=== PATIENT | female | born 1955 | race Caucasian/White ===

== ENCOUNTER 2022-12-03 10:30 | Outpatient (RCR) | payer MEDICARE, SELFPAY | END 2023-02-24 09:06 | disposition home or self-care (01) | PROVIDERS: PCP Family Medicine; Visit Provider Family Medicine | DX: M25.561 Pain in right knee (principal); M25.562 Pain in left knee; M62.81 Muscle weakness (generalized); M21.069 Valgus deformity, not elsewhere classified, unspecified knee; Z51.89 Encounter for other specified aftercare | CPT/HCPCS: 97110; 97140; 97162 ==

== ENCOUNTER 2023-09-09 11:45 | Outpatient (RCR) | payer MEDICARE, SELFPAY | END 2023-09-22 14:25 | disposition home or self-care (01) | PROVIDERS: PCP Family Medicine; Visit Provider Family Medicine | DX: M25.561 Pain in right knee (principal); M25.562 Pain in left knee; Z51.89 Encounter for other specified aftercare | CPT/HCPCS: 97110; 97140; 97162 ==

== ENCOUNTER 2024-09-10 06:15 | Inpatient (IN) | payer MEDICARE, SELFPAY ==
[2024-09-10] VITALS (17 sets, daily range): BP systolic 123–146; BP diastolic 71–89; PULSE 64–85; RESP 14–18; TEMP 36.2–37.2; O2SAT 93–100; BMI 21.8; BMI 22.6
--- OUTSIDE RECORDS SUMMARY | 2024-09-10 06:18 | XMS_ITS | Clinical Summary ---
Author Organization [facility] Address [address] [place] [address] Care Team Providers Care Wedding Cake Designer Name Role Phone Steve Avery RN Unavailable Unavailable Carina Mckeon MD Primary Care Provide r Rowan Garcia MD Unavailable [phone] Allergies Active Allergy Reactions Criticality Noted Date Comments Leflunomide Alopecia,Dizziness 02/08/2023 Sulfa (Sulfonamide Antibiotics) Nausea Only 08/2011 Trazodone Dizziness 01/27/2021 Medications folic acid 1 mg tabletIndicati ons:Rheumatoid arthritis with positive rheumatoid factor, involving unspecified site (HC) Take 1 tablet by mouth once daily. 90 tablet 0 12/10/19 16 Active multivitamin-f olic acid 0.4 mg tablet Take 1 tablet by mouth once daily. Active cholecalcifero l (VITAMIN D) 1,000 unit capsule Take 1,000 Units by mouth once daily. Active methotrexate 25 mg/mL injectionIndic ations:Rheumat oid arthritis with positive rheumatoid factor, involving unspecified site (HC) Inject 0.6 mL (15 mg) subcutaneous once weekly. 12 mL 2 12/06/19 24 Active Lactobacillus acidophilus 10 billion cell cap Take by mouth. 08/23/19 24 Active estradioL (ESTRACE) 0.01% (0.1 mg/g) vaginal creamIndicatio ns:Atrophic vaginitis Insert 1 g into the vagina once weekly. 42.5 g 5 02/09/20 24 Active predniSONE 5 mg tabletIndicati ons:Rheumatoid arthritis with positive rheumatoid factor, involving unspecified site (HC) One daily or as directed 10 Tablet 07/20/19 25 Active ALPRAZolam 0.5 mg tabletIndicati ons:Insomnia, idiopathic Take 1-2 Tablets (0.5-1 mg) by mouth at bedtime if needed for sleep. 120 Tablet 08/22/19 25 Active ALPRAZolam (XANAX) 0.5 mg tabletIndicati ons:Insomnia, idiopathic Take 1-2 Tablets (0.5-1 mg) by mouth at bedtime if needed for sleep 120 Tablet 2 03/02/20 24 025 Discontinued Active Problems Problem Noted Date Diagnosed Date SCCA (squamous cell carcinoma) of skin Skin cancer 12/16/2023 Overview (02/14/2024): 12/13/23 right clavicle, Invasive SCC, excised by Jennifer Pascal MD on 01/18/2024 Primary osteoarthritis of right knee 09/02/2023 Primary osteoarthritis of left knee 08/05/2023 Immunosuppression 02/08/2023 History of sacrocolpopexy 06/20/2018 Female bladder prolapse 06/14/2017 Rectocele 06/14/2017 Rheumatoid arthritis with positive rheumatoid fa ctor 09/09/2015 Methotrexate, 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 Stage 3B. Grade 2. [address] positive. Pulmonary nodules noted on CT chest. Need follow up. MOHPA follows. Free intraperitoneal air Resolved Problems Problem Noted Date Diagnosed Date Resolved Date Cancer of skin, squamous cell 11/25/2016 12/16/2023 Rheumatoid arthritis(714.0) 02/10/2012 09/09/2015 Overview (02/10/2012): She sees Holly Dooley research analyst Encounters Date Type Department Care Team Description 09/03/2024 10:10 AM CDT Orders [place] [facility] [address] [place], [place] [address] Lab 09/03/2024 Travel 08/29/2024 Travel 08/20/2024 Refill [facility] [address] [place] [address] Carina Mckeon MD Refill Request (Alprazolam) 08/14/2024 9:45 AM CDT Office Visit [facility] [address] [facility] [address] [place] [address] Indiana Ellis MD Derm Problem 08/14/2024 Travel 08/09/2024 Travel 07/31/2024 11:05 AM CDT Ancillary Procedure [facility] [address] [place] [address] 07/31/2024 11:00 AM CDT Office Visit [facility] [address] [place] [address] Des Harmon MD Results (Bilateral Knee) 07/31/2024 Travel 07/26/2024 Travel 07/19/2024 Telephone [facility] [address] [place] [address] Des Harmon MD Appointment Request from Last 3 Months Immunizations Immunization Administration Dates Next Due COVID-19 VACCINE SPIKEVAX (M ODERNA 50MCG/0.5ML) 12YO+ PFS 02/09/2024 COVID-19 vaccine (Pfizer-Bio NTech 30mcg/0.3mL) 12YO+ BIVALENT PF, MDV 01/26/2022 COVID-19 vaccine (Pfizer-Bio NTech 30mcg/0.3mL) 12YO+ RACHELLE-SUCROSE PF, MDV 08/05/2021 COVID-19 vaccine (Pfizer-Bio NTech 30mcg/0.3mL) PF, MDV 01/22/2021,07/01/2020,06/10/2020 Hepatitis A, Unspecified 08/14/1997 Influenza RIV4 (Age 18+ Years) PRESERV FREE 10/2019,04/02/2019 Influenza Virus, Unspecified 01/21/2009,01/23/20 04 Influenza, IIV3 (Age >=3 years) 04/27/2012,02/23 Influenza, IIV4 (Age 6-35 Mos) 04/06/2013 Influenza, Inactivated AIIV4 (Age 65+ Years) Preserv Free 02/08/2023,01/13/2022,02/12/2021 Influenza, Inactivated IIV3 (Age 65+ Years) Preserv Free 02/09/2024 Pneumococcal Poly,23-Valent (Pneumovax) 12/28/19 20 Pneumococcal conj 13-Valent (Prevnar 13) 021 Td (Age >=7 Years) 01/23/2004,08/14/1997 Tdap 08/09/2014 Family History Medical History Relation Name Comments Alcohol/Drug Father Hypertension Father [place] and in 70's Cancer Maternal Grandmother unknown Hypertension Maternal Grandmother Cancer Mother gallbladder can cer Cancer-colon Paternal Grandfather Cancer-breast Paternal Grandmother Cancer-breast Sister 3 mu Anesthesia Problem No Family History Blood Disease No Family History Cancer-ovarian No Family History Relation Name Status Comments Father Maternal Grandmother Mother Paternal Grandfather Paternal Grandmother Sister 1 Alive Sister 2 Alive Sister 3 mu Alive Social History Tobacco Use Types Packs/Day Years Used Date Smoking Tobacco: Never Smokeless Tobacco: Never Tobacco Cessation:Counseling Given: Yes Alcohol Use Standard Drinks/Week Comments Not Currently 0 (1 standard drink = 0.6 oz pur e alcohol) PHQ-2 Answer Date Recorded PHQ-2 TOTAL SCORE 0 02/09/2024 Social Connections Answer Date Recorded Frequency of Communication with Friends and Fami ly 0 02/08/2023 Financial Resource Strain Answer Date R ecorded Difficulty of Paying Living Expenses 3 02/08/2023 Difficulty of Paying Living Expenses Not on file 02/08/2023 Food Insecurity Answer Date Recorded Worried About Running Out of Food in the Last Ye ar 1 02/08/2023 Transportation Needs Answer Date Record ed Lack of Transportation (Medical) 1 02/08/2023 Housing Stability Answer Date Recorded Unable to Pay for Housing in the Last Year 1 02/08/2023 Comments No Sex and Gender Information Value Date Recorded Sex Assigned at Female 10/05/2020 7:41 PM CDT Legal Sex Female 7:13 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 Gender Identity Female 10/05/2020 7:41 PM CDT Sexual Orientation Straight 10/05/2020 7: 41 PM CDT Obstetrics History Para Term AB IAB SAB Ectopic Multiple Livin g Live Births 2 2 2 2 Date Outcome GA Total Labor Labor/2nd/3rd Weight Sex Type Anes PTL Azul A1 A5 Name Clin Term Term Last Filed Vital Signs Vital Sign Reading Time Taken Comments Blood Pressure 110/70 06/05/2024 10:03 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 Pulse 77 06/05/2024 10:03 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 Temperature 36.8 C (98.3 F) 10/11/2023 1:59 PM CDT Respiratory Rate 20 08/20/2023 3:14 PM CDT Oxygen Saturation 100% 06/05/2024 10:03 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 Inhaled Oxygen Concentration - - Weight 60.8 kg (134 lb) 06/05/2024 10:03 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 Height 165.7 cm (5' 5.25) 02/09/2024 8:19 AM CD T Body Mass Index 22.13 02/09/2024 8:19 AM CDT Plan of Treatment Upcoming Encounters Date Type Department Care Team (Late st Contact Info) Description 12/04/2024 10:00 AM CDT [place] [facility] [address] [facility] [address] [place] [address] David Hsu MD [address] [facility] [address] [place] [address] 08/14/2025 10:00 AM CDT Office Visit [facility] [address] [facility] [address] [place] [address] [place] [address] [place] [address] Health Maintenance Due Date Last Done Comments Zoster (shingles) series for age 50+ (1 of 2) 1972 RSV vaccine for adults or (1 - Risk 60-74 years 1-dose series) 2013 COVID-19 vaccine series (9 - Pfizer risk season) 2024 02/09/2024, 11/01/2023, 03/19/2023, Additional history exists Tetanus booster 08/09/2024 08/09/2014, 01/01, 08/14/1997 Mammogram for age 45-75 10/24/2024 10/25/19 24, 10/19/2022, 10/13/2021, Additional history exists BMI (ht and wt on same day) for age 18+ 02/08/2025 02/09/2024, 08/20/2023, 02/08/2023, Additional history exists Depression screening for age 12+ 02/08/2025 02/09/2024, 02/08/2023, 01/26/2022, Additional history exists Medicare Wellness for age 65+ 02/09/2025, 02/08/2023, 01/26/2022, Additional history exists Lipids for age 45-75 02/08/2029 02/09/2024, 02/08/2023, 01/26/2022, Additional history exists Colonoscopy through age 75 07/26/203207/26, 02/10/2021, 10/21/2016, Additional history exists Tdap Completed 08/09/2014 DEXA/DXA scan for age 65+ Completed 11/14/2018 Hepatitis C screening for ag e 18-79 Completed 12/28/2019 Pneumococcal series for age 50+ Completed , 12/28/2019 Influenza Vaccine Completed 02/09/2024, , 01/13/2022, Additional history exists Medical Devices Implanted Type Area Disaster Recovery Consultant Device Identifier Shelf Expiration Date Model / Serial / Lot Set [employer] Intubationjedmed - [id number] Implanted:Qty: 1 on 08/20/2011 by Tracey Wright MD at [facility] [employer] [id number] / / [id number] Procedures Procedure Name Priority Date/Time Associated Diagnosis Comments WI BLOOD COUNT COMPLETE AUTO&AUTO DIFRNTL WBC Routine 09/03/2024 10:24 AM CDT High risk medication use ALT (SGPT) Routine 09/03/2024 10:22 AM CDT High risk medication use AST (SGOT) Routine 09/03/2024 10:22 AM CDT High risk medication use XR KNEE WB 1 VIEW AP BILATERAL AND 3 VIEWS BILATERAL Routine 07/31/2024 10:58 AM CDT Primary osteoarthritis of right knee Primary osteoarthritis of left knee LIPID PANEL W REFLEX MEASURED LDL Routine 02/09/2024 9:50 AM CDT Lipid screening XR MAMMO SALLY BILAT SCREEN Routine 10/25/2023 10:50 AM CDT Visit for screening mammogram SCAN-COLONOSCOPY 07/26/2022 2:00 PM CDT ANTI HCV Routine 12/28/2019 11:12 AM CDT Encounter for hepatitis C screening test for low risk patient XR DXA BONE DENSITY 2 SITES AXIAL Routine 11/14/2018 11:30 AM CDT Menopause from Last 3 Months or Most Recently Relevant to Health Maintenance Results * (ABNORMAL) CBC AND DIFFERENTIAL (09/03/2024 10:24 AM CDT) WHITE BLOOD CELL COUNT 5.3 3.8 - 10.8 Thousand/ uL [facility] RED BLOOD CELL COUNT 4.26 3.80 - 5.10 Million/u L [facility] HEMOGLOBIN 14.1 11.7 - 15.5 g/dL [facility] HEMATOCRIT 43.6 35.0 - 45.0 % [facility] MCV 102.3(H) 80.0 - 100.0 fL [facility] MCH 33.1(H) 27.0 - 33.0 pg [facility] MCHC 32.3 32.0 - 36.0 g/dL [facility] Comment: For adults, a slight decrease in the calculated MCHC value (in the range of 30 to 32 g/dL) is most likely not clinically significant; however, it should be interpreted with caution in correlation with other red cell parameters and the patient's clinical condition. RDW 13.5 11.0 - 15.0 % [facility] PLATELET COUNT 234 140 - 400 Thousand/ uL [facility] MPV 10.8 7.5 - 12.5 fL [facility] ABSOLUTE NEUTROPHILS 3,593 1,500 - 7,800 cells/uL [facility] ABSOLUTE LYMPHOCYTES 1,023 850 - 3,900 cells/uL [facility] ABSOLUTE MONOCYTES 572 200 - 950 cells/uL [facility] ABSOLUTE EOSINOPHILS 69 15 - 500 cells/uL [facility] ABSOLUTE BASOPHILS 42 0 - 200 cells/uL [facility] NEUTROPHILS 67.8 % [facility] LYMPHOCYTES 19.3 % [facility] MONOCYTES 10.8 % [facility] EOSINOPHILS 1.3 % [facility] BASOPHILS 0.8 % [facility] Blood BLOOD SPECIMEN / Unknown 09/03/2024 10:24 AM CDT 09/03/2024 10:24 AM CDT Narrative [facility] - 09/03/2024 11:09 AM CDT SPLIT 09/03/2024 FROM [id number] us David Hsu MD HEMATOLOGY Final Resul t [facility] [address] [place] [address] [facility] [address], [address] [place] [phone] * ALT (SGPT) (09/03/2024 10:22 AM CDT) ALT 17 6 - 29 U/L [facility] Blood BLOOD SPECIMEN / Unknown 09/03/2024 10:22 AM CDT 09/03/2024 10:23 AM CDT Narrative [facility] - 09/04/2024 4:40 AM CDT MULTIPLE TESTING PRIORITIES; ROUTINE TESTING TO FOLLOW. David Hsu MD CHEMISTRY Final Resul t Performing Organization Address [facility]/ZIP Co de Phone Number [facility] [address] [place] [phone], [facility] [address] [place] [address] * AST (SGOT) (09/03/2024 10:22 AM CDT) AST 26 10 - 35 U/L [facility] Blood BLOOD SPECIMEN / Unknown 09/03/2024 10:22 AM CDT 09/03/2024 10:23 AM CDT Narrative [facility] - 09/04/2024 4:40 AM CDT MULTIPLE TESTING PRIORITIES; ROUTINE TESTING TO FOLLOW. David Hsu MD CHEMISTRY Final Resul t Performing Organization Address [facility]/ZIP Co de Phone Number [facility] [address] [place] [address], [facility] [address] [place] [address] * XR KNEE WB 1 VIEW AP BILATERAL AND 3 VIEWS BILATERAL (07/31/2024 10:58 AM CDT) Anatomical Region Laterality Modality KNEES Computed Radiogr aphy 07/31/2024 11:2 2 AM CDT Narrative 07/31/2024 11:22 AM CDT For Patients: As a result of the Cures Act, medical imaging exams and procedure reports are released immediately into your electronic medical record. You may view this report before your referring provider. If you have questions, please contact your health care provider. INDICATION: Primary osteoarthritis of the right and left knee. Technique : Four views each of the right and left knee. Comparison : 08/05/2023 FINDINGS: No acute fracture or dislocation. Severe lateral compartment narrowing both knees with mild valgus angulation. Tricompartmental osteoarthritis. Possible sub articular lytic density in the lateral femoral condyle of the left knee. No obvious joint effusion. Impression : Chronic bilateral tricompartment osteoarthritis with progressive lateral compartment narrowing. Dictated by Saritha Acevedo MD @ 07/31/2024 11:22:06 AM (Electronically Signed) Procedure Note Luis Felipe Acevedo MD - 07/31/2024 For Patients: As a result of the Cures Act, medical imagingexams and procedure reports are released immediately into your electronicmedical record. You may view this report before your referring provider.If you have questions, please contact your health care provider. INDICATION: Primary osteoarthritis of the right and left knee. Technique : Four views each of the right and left knee. Comparison : 08/05/2023 FINDINGS: No acute fracture or dislocation. Severe lateral compartment narrowingboth knees with mild valgus angulation. Tricompartmental osteoarthritis.Possible sub articular lytic density in the lateral femoral condyle of theleft knee. No obvious joint effusion. Impression : Chronic bilateral tricompartment osteoarthritis with progressive lateralcompartment narrowing. Dictated by Saritha Acevedo MD @ 07/31/2024 11:22:06 AM (Electronically Signed) us Des Harmon MD GENERAL IMAGING Final Resul t * (ABNORMAL) LIPID PANEL W REFLEX MEASURED LDL (02/09/2024 9:50 AM CDT) CHOLESTEROL, TOTAL 240(H) <200 mg/dL [facility] HDL CHOLESTEROL 66 > OR = 50 mg/dL [facility] TRIGLYCERIDES 123 <150 mg/dL [facility] LDL-CHOLESTEROL 149(H) mg/dL (calc) [facility] Comment: Reference range: <100 Desirable range <100 mg/dL for primary prevention; <70 mg/dL for patients with CHD or diabetic patients with > or = 2 CHD risk factors. LDL-C is now calculated using the Anitra calculation, which is a validated novel method providing better accuracy than the Friedewald equation in the estimation of LDL-C. Akshat CASTELLANOS et al. ARUNA. 2013;310(19): 2069-4326 (http://education.Ambiq [employer]/faq/XCX364) CHOL/HDLC RATIO 3.6 <5.0 (calc) [facility] NON HDL CHOLESTEROL 174(H) <130 mg/dL (calc) [facility] Comment: For patients with diabetes plus 1 major ASCVD risk factor, treating to a non-HDL-C goal of <100 mg/dL (LDL-C of <70 mg/dL) is considered a therapeutic option. Blood BLOOD SPECIMEN / Unknown 02/09/2024 9:50 AM CDT 02/09/2024 9:51 AM CDT us Carina Mckeon MD CHEMISTRY Final Result [facility] [address] [place] [address], [facility] [address] [place] [address] * XR MAMMO SALLY BILAT SCREEN (10/25/2023 10:50 AM CDT) Anatomical Region Laterality Modality BREASTS, Breast Left, Breast Right Bilateral Mammography Impressions 10/25/2023 12:52 PM CDT There is no radiographic evidence for malignancy. Recommend annual mammograms. MAMMOGRAM ASSESSMENT: ACR 1 Negative PATIENTS: You will also receive a letter with your examination results in an easy to read format. If you have questions about your results, please contact your referring provider. Narrative 10/25/2023 12:52 PM CDT For Patients: As a result of the Century Cures Act, medical imaging exams and procedure reports are released immediately into your electronic medical record. You may view this report before your referring provider. If you have questions, please contact your health care provider. XR MAMMO SALLY BILAT SCREEN [[id number]] CLINICAL HISTORY: This is an asymptomatic 68 y.o. patient. INDICATION FOR EXAM: Mammogram Screening. TECHNIQUE: CC & MLO views were obtained. This study was evaluated with the assistance of Computer-Aided Detection. Breast Tomosynthesis was used in interpretation. COMPARISON FILM: Yes 10/19/22 [facility] 10/13/21 [facility] FINDINGS: There are scattered areas of fibroglandular density. There are no dominant masses, suspicious micro calcifications or areas of architectural distortion. us Carina Mckeon MD MAMMO Final Result * SCAN-COLONOSCOPY (07/26/2022 2:00 PM CDT) Narrative Procedure Note Tye العلي MD - 07/26/2022 1:00 PM CDT [facility] [address], [address], [place] [address] Patient Name: Ember Menjivar Gender: Female Exam Date: 07/26/2022 Visit Number: [id number] Age: 66 Years 11 Months Date of : 1955 Attending MD: Tye العلي MD Medical Record#: [id number] ----- Procedure: Colonoscopy Indications: Abdominal pain Personal history of colon cancer Referring MD: Carina Mckeon MD Primary MD: Carina Mckeon MD Medications: Admitting Medications: 0.9% Normal Saline at TKO Intra Procedure Medications: Patient received monitored anesthesia care. Complications: No immediate complications Procedure: An examination of the heart and lungs was performed and found to be withinacceptable limits. The patient was therefore deemed a reasonablecandidate for endoscopy and monitored anesthesia care. The risks and benefits of the procedure were explained to the patient.After obtaining informed consent, the patient received monitoredanesthesia care and I passed the scope without difficulty via the rectum to the ileum. The appendiceal orificeand ic valve were identified. The quality of the prep was good (Jose Eduardo/GatSplit). This was a complete examination throughout the entire colon. Findings: Normal mucosa. Location - ileum - entire colon. Diverticulosis. Location: - sigmoid. Description: mild. Size:small. Quantity: few. Post surgical anatomy: -ileo-colonic anastomosis Location(s): -ascending colon Healthy appearing anastomosis. Tortuous colon. Remainder of the exam is normal. Impression: 1. Ileo-colonic anastomosis noted in ascending colon with healthyappearance. 2. Diverticulosis of sigmoid colon, mild. 3. Tortuous colon, but otherwise normal appearing mucosa in the examinedileum and the entire colon. Plan: 1. Repeat surveillance colonoscopy in 5 years. 2. No endoscopic findings today to explain lower abdominal pain. Suspectintermittent pain likely due to tortuous colon and suspected adhesions.Would favor empirical trial of once daily [id number] fibersupplements and/or laxative with MiraLax to ensure smooth passage ofstool. We will attempt to contact you at appropriate intervals via U.S. mail. Wemay not be able to find you or contact you at that time, therefore youshould know that the responsibility for following our recommendation restswith you. If you don't hear from us at the time your procedure is due,please contact our office to schedule an appointment. If your contactinformation should change, please contact our office so that we can updateyour records. Electronically signed by: Tye العلي MD 07/26/2022 Medications: Medication Dose Sig Description PRN Status PRN Reason Comments leflunomide 20 mg tablet 20 mg take 1 tablet by oral route every day N Rasuvo (PF) 30 mg/0.6 mL subcutaneous auto-injector 30 mg/0.6 mL inject0.6 milliliter by subcutaneous route every week N Allergies: Medication Name Ingredient Reaction Comment SULFA (SULFONAMIDE ANTIBIOTICS) nausea NO KNOWN ALLERGIES Vital Signs: Date Time Systolic Diastolic Height Weight BMI 07/26/2022 130 AM 000 000 65 in 129.39 21.50 07/26/2022 130 PM 115 70 65 in 129.39 21.50 Smoking Status: Use Status Type Smoking Status Usage Per Day Years Used Total Pack Years no/never Never smoker no/never Never smoker Race: White Ethnicity: Not or Preferred Language: Estonian cc: Carina Mckeon MD cc: Carina Mckeon MD cc: Severo Gillette MD cc: Carina Mckeon MD [facility] [phone] us Tye العلي MD OTHER Final Result * ANTI HCV (12/28/2019 11:12 AM CDT) Pathologist [facility] HEPATITIS C ANTIBODY Non-React jeff Non-React jeff 12/28/2019 5:37 PM CDT [facility] Comment:Antibodies to HCV no t detected; does not exclude the possibility of exposure to HCV. Blood BLOOD SPECIMEN / Unknown Venipuncture / Unknown 12/28/2019 11:12 AM CDT 12/28/2019 11:12 AM CDT us Carina Mckeon MD SEND OUTS Final Result [facility] [address] [place] [address], [place] * (ABNORMAL) XR DXA BONE DENSITY 2 SITES AXIAL [28145.1] (11/14/2018 11:30 AM CDT) Anatomical Region Laterality Modality Spine, HIPS, HIPL, HIPR Other Narrative 11/27/2018 8:41 AM CDT Please see scanned document for results of this study. us Carina HENDRIX Final Result from Last 3 Months or Most Recently Relevant to Health Maintenance Insurance [employer] MED[employer]ARE ADVANTAGE Advance Directives * Full Code (Latest Code Status on File) Date Activated Date Inactivated Comments 08/09/2016 5:24 PM 2016 3:00 PM * Full Code Date Activated Date Inactivated Comments 04/06/2012 1:50 PM 04/10/2012 6:22 PM * Full Code Date Activated Date Inactivated Comments 08/20/2011 9:54 AM 08/20/2011 4:33 PM Care Teams Wedding Cake Designer Relationship Specialty Start Date End Date Carina Mckeon MD [address] [place] [address] PCP - General Family Practice 06/14/14 Steve Avery, RN Rn Procedure Registered Nurse 03/31/12 Rowan Garcia MD [address] [facility] [address] [place] [address] Rheumatology Rheumatology 12/10/15 Lucero Downey, RN 10/20/12
--- OUTSIDE RECORDS SUMMARY | 2024-09-10 06:18 | XMS_ITS | Clinical Summary ---
Author Organization [place] Address [facility] [place] [address] Care Team Providers Care Mannequin Sander And Finisher Name Role Phone Carina Mckeon Primary Care Provider [phone] Allergies Active Allergy Reactions Criticality Noted Date Comments Sulfa Antibiotics Nausea Low 04/20/2012 Medications hydroxychloroqu ine (PLAQUENIL) 200 MG tablet Take 200 mg by mouth 2 times daily Active FOLIC ACID PO Take 400 mcg by mouth daily Active conjugated estrogens (PREMARIN) cream Place 2 g vaginally twice a week Active Probiotic Product (PROBIOTIC PO) Take 2 capsules by mouth daily Active ALPHA LIPOIC ACID PO Take 1 capsule by mouth daily Active ALPRAZolam (XANAX PO)Indications: 1-2 tablets Take 0.5-1 mg by mouth nightly as needed for anxiety Active multivitamin, therapeutic with minerals (THERA-VIT-M) TABS tablet Take 1 tablet by mouth daily Active MILK THISTLE PO Take 1 tablet by mouth daily Active methotrexate (RHEUMATREX) 25 MG/ML injection Inject 15 mg Subcutaneous once a week On Sundays (Takes 0.6 x 25mg/mL = 15mg dose) Active senna-docusate (SENOKOT-S;EVELINE COLACE) 8.6-50 MG per tabletIndicatio ns:Uterine prolapse Take 1 tablet by mouth daily as needed for constipation 20 tablet 8 Active HYDROcodone-js taminophen (NORCO) 5-325 MG per tabletIndicatio ns:Uterine prolapse Take 1 tablet by mouth every 4 hours as needed for pain 20 tablet 8 Active Active Problems Problem Noted Date Diagnosed Date Uterine prolapse 12/21/2017 Social History Tobacco Use Types Packs/Day Years Used Date Smoking Tobacco: Never Smokeless Tobacco: Never Alcohol Use Standard Drinks/Week Comments Yes 0 (1 standard drink = 0.6 oz pur e alcohol) 6/week Comments No Sex and Gender Information Value Date Recorded Sex Assigned at Not on file Legal Sex Female 3:21 AM REGRINDER Gender Identity Not on file Sexual Orientation Not on file Last Filed Vital Signs Vital Sign Reading Time Taken Comments Blood Pressure 96/56 12/21/2017 3:37 PM CDT Pulse 74 11/15/2012 10:21 AM CDT Temperature 35.6 C (96 F) 12/21/2017 3:37 PM CDT Respiratory Rate 14 12/21/2017 3:37 PM CDT Oxygen Saturation 96% 12/21/2017 3:37 PM CDT Inhaled Oxygen Concentration - - Weight 62.4 kg (137 lb 8 oz) 12/21/2017 6:45 AM CDT Height 166.4 cm (5' 5.5) 12/21/2017 6:45 AM CDT Body Mass Index 22.53 12/21/2017 6:45 AM CDT Plan of Treatment Not on file Medical Devices Implanted Type Area Keyboard Action Assembler Device Identifier Shelf Expiration Date Model / Serial / Lot Mesh Sling Y Shape Restorelle [id number] Implanted:Qty: 1 on 12/21/2017 by Philippe Miranda MD at [facility] Mesh N/A: Pelvis COLOPLAST 07/01/2020 [id number] / / [id number] Insurance [employer] Advance Directives For more information, please contact: [phone] * Full Code (Latest Code Status on File) Date Activated Date Inactivated Comments 12/21/2017 2:51 PM Care Teams Mannequin Sander And Finisher Relationship Specialty Start Date End Date Carina Mckeon PCP - General Family Practice 11/29/17
--- NOTE | 2024-09-10 06:22 | ED.GENADULT ---
HPI - General Adult General Time Seen by Provider: 06:22 Date Seen: 09/10/24 Chief complaint: Abdominal Pain Stated complaint: abdominal pain, vomit, Time Seen by Provider: 09/10/24 06:22 Source: patient, RN notes reviewed and old records reviewed Mode of arrival: ambulatory Limitations: no limitations History of Present Illness HPI narrative: 69-year-old female who comes in today with abdominal pain, started last night. Then started having nausea vomiting and diarrhea today. Says she feels gassy. Patient has a history of prior partial colectomy related to colon cancer, also reports a history of ?perforation? which was treated with antibiotics only. No fever chills, on methotrexate for rheumatoid arthritis. Related Data Allergies Allergy/AdvReac Type Severity Reaction Status Date / Time Sulfa (Sulfonamide Allergy Mild Diarrhea Verified 09/10/24 07:30 Antibiotics) PFSH PFSH Social History Smoking Status: Never smoker Second hand tobacco smoke exposure: No How often do you have a drink containing alcohol: never AUDIT-C Alcohol total score: 0 Non-prescribed substance use: denies use Exam Narrative: Exam Narrative: General: Well-developed and well-nourished, appears uncomfortable Head: Atraumatic and normocephalic Eyes: Pupils are equal reactive, extraocular motions intact, conjunctiva clear ENT: External nose and ears are normal, posterior pharynx without erythema or exudate Neck: No midline cervical tenderness, full spontaneous range of motion the neck, trachea midline, no adenopathy Heart: Regular rate and rhythm no murmurs or thrills Lungs: Clear to auscultation bilaterally without wheezes or crackles Abdomen: Soft, diffuse abdominal tenderness, mild distention with active bowel sounds Musculoskeletal: No tenderness, deformity, or edema Neurologic: Awake, alert, and oriented x3, no gross focal neurologic deficits, cranial nerves intact as tested Psych: Mood and affect are appropriate Skin: No rashes Const: Vital Signs, click to edit/add: Vital Signs - 24 hr 09/10/24 06:32 09/10/24 06:42 09/10/24 06:43 Temperature 98.1 F Pulse Rate 83 Pulse Rate [Right Pulse Oximeter] 85 Respiratory Rate 18 18 Blood Pressure 129/81 Blood Pressure [Le ft Upper Arm] 138/89 Pulse Oximetry 99 100 99 Oxygen Delivery Me thod Room Air Oxygen Flow Rate 09/10/24 07:47 Temperature Pulse Rate Pulse Rate [Right Pulse Oximeter] Respiratory Rate Blood Pressure Blood Pressure [Le ft Upper Arm] Pulse Oximetry 99 Oxygen Delivery Me thod Nasal Cannula Oxygen Flow Rate 2 Course Course ED Course: Reviewed most recent orthopedics visit from July 31 which was follow-up of osteoarthritis, patient also noted to have history of rheumatoid arthritis on methotrexate. Reviewed prior admission from July 2016 when patient was admitted with free air in the abdomen, no clear perforation, managed with antibiotics and bowel rest. Patient presents with abdominal pain starting yesterday, vomiting and diarrhea this morning. No blood in the stools. Says she has a history of a perforation and this feels similar. On exam vital is stable, mild diffuse abdominal tenderness, no peritoneal signs. Labs and CT scan are ordered. Reevaluation(s) Time of Reevaluation #1: 07:20 Reevaluation #1: Labs independently interpreted by me as normal CBC, normal basic panel, normal hepatic panel, normal lipase, normal lactate. CT of the abdomen pelvis and pelvis interpreted by me with dilated loops of small bowel,, no free air. Stomach is mostly decompressed. Time of Reevaluation #2: 07:45 Reevaluation #2: Updated patient and spouse with findings and plan. Patient is complaining of severe pain although appears more comfortable, also oxygen saturation dropped and so patient is on nasal cannula. I am a little hesitant to give her too much more pain medication due to this hypoxia. NG tube will be placed. Care discussed with Dr. Cerrato for admission. IMPRESSION: Abnormally dilated small bowel. The findings probably represent an early or incomplete distal small bowel obstruction. It is also possible that this represents an enteritis or a small-bowel ileus. Other nonacute appearing findings as above. Vital Signs Vital signs: Initial Vital Signs Temperature 98.1 F 09/10/24 06:32 Temperature Source Temporal Artery Scan 09/10/24 06:32 Pulse Rate 85 09/10/24 06:32 Respiratory Rate 18 09/10/24 06:32 Blood Pressure 138/89 09/10/24 06:32 Blood Pressure Mean 105 09/10/24 06:32 Blood Pressure Position Sitting 09/10/24 06:32 Pulse Oximetry 99 09/10/24 06:32 Oxygen Delivery Method Room Air 09/10/24 06:32 Vital Signs Temperature 98.1 F 09/10/24 06:32 Pulse Rate 85 09/10/24 06:32 Respiratory Rate 18 09/10/24 06:32 Blood Pressure 138/89 09/10/24 06:32 Pulse Oximetry 99 09/10/24 06:32 Oxygen Delivery Method Room Air 09/10/24 06:32 Temperature 98.1 F 09/10/24 06:32 Pulse Rate 83 09/10/24 06:42 Respiratory Rate 18 09/10/24 06:42 Blood Pressure 129/81 09/10/24 06:42 Pulse Oximetry 99 09/10/24 07:47 Oxygen Delivery Method Nasal Cannula 09/10/24 07:47 Oxygen Flow Rate 2 09/10/24 07:47 Medications Administered Medications: Discontinued Medications Generic Name Dose Route Start Last Admin Trade Name Raphaelq PRN Reason Stop Dose Admin Hydromorphone HCl 0.5 mg 09/10/24 06:37 09/10/24 06:38 Hydromorphone 0.5 Mg/0.5 Ml Inj IVP 09/10/24 06:38 0.5 mg ONCE ONE Administration Ondansetron HCl 4 mg 09/10/24 06:37 09/10/24 06:39 Ondansetron 2 Mg/Ml Inj IVP 09/10/24 06:38 4 mg ONCE ONE Administration Medical Decision Making Lab Data Labs: Lab Results 09/10/24 Range/Units 06:40 WBC 9.55 (4.50-11.00) K/uL RBC 4.46 (4.00-5.20) m/uL Hgb 15.0 (12.0-16.0) gm/dL Hct 44.0 (33.0-51.0) % MCV 99 (80-100) fL MCH 34 (26-34) pg MCHC 34 (32-36) gm/dL RDW Coeff of Elena 13.3 (11.5-15.5) % Plt Count 253 (140-440) K/uL Neut % (Auto) 86.4 H (42.0-72.0) % Lymph % (Auto) 7.2 L (20-44) % Merrick % (Auto) 5.7 (0.0-11.0) % Eos % (Auto) 0.3 (0.0-7.0) % Baso % (Auto) 0.3 (0.0-3.0) % Neut # (Auto) 8.30 H (1.7-7.0) K/uL Lymph # (Auto) 0.70 L (0.90-2.90) K/uL Merrick # (Auto) 0.50 (0.00-0.90) K/UL Eos # (Auto) 0.03 (0.00-0.50) K/uL Baso # (Auto) 0.03 (0.00-0.30) K/uL Abs Immat Gran (auto) 0.01 (0.00-0.30) K/uL Imm/Tot Granulo (auto) 0.1 % Sodium 138 (135-149) mmol/L Potassium 3.4 L (3.6-5.1) mmol/L Chloride 102 (96-114) mmol/L Carbon Dioxide 27 (20-32) mmol/L Anion Gap 9 (7-15) mEq/L BUN 17 (7-30) mg/dL Creatinine 0.8 (0.5-1.5) mg/dL Estimated Creat Clear 46.43 Estimated GFR 79 ml/min Glucose 145 H (60-115) mg/dL Lactate 1.0 (0.5-1.9) mmol/L Calcium 9.4 (8.4-10.6) mg/dL Magnesium 2.2 (1.5-2.6) mg/dL Total Bilirubin 0.9 (0.1-1.5) mg/dL Direct Bilirubin 0.4 (0.0-0.5) mg/dL AST 45 H (12-35) U/L ALT 24 (4-35) U/L Alkaline Phosphatase 88 (40-150) U/L Total Protein 7.6 (6.0-8.3) g/dL Albumin 4.7 (3.3-5.0) g/dL Lipase 99 (23-300) U/L Discharge Plan Discharge Clinical Impression: Abdominal pain, vomiting, and diarrhea, SBO (small bowel obstruction) Patient Disposition: Admitted As Observation
--- NOTE | 2024-09-10 06:37 | CRLHL7_ITS ---
For Patients: As a result of the 21st Century Cures Act, medical imaging exams and procedure reports are released immediately into your electronic medical record. You may view this report before your referring provider. If you have questions, please contact your health care provider. INDICATION: Abdominal pain. History of partial colon resection, hysterectomy, cholecystectomy and appendectomy. COMPARISON: August 09, 2016 TECHNIQUE: CT examination of the abdomen and pelvis was performed following the uneventful intravenous administration of 64 cc of Isovue 370. Thin section axial images were obtained from the lung bases through the pubic symphysis. Oral contrast was not administered. Please note that all CT scans at this facility use dose modulation, iterative reconstruction, and/or weight-based dosing when appropriate to reduce radiation dose to as low as reasonably achievable. FINDINGS: LUNG BASES: Basilar atelectasis or scarring. Left lower lobe granuloma.The heart is enlarged the lung bases LIVER/BILIARY SYSTEM:No focal hepatic mass. There has been a cholecystectomy. What is likely a dilated cystic duct remains. This was present on the prior study and appears unchanged. Mildly prominent biliary ductal system unchanged likely capacitance phenomena from the cholecystectomy. ADRENALS: Normal KIDNEYS, URETERS and BLADDER:The kidneys appear normal. No visible mass, calculus or hydronephrosis. The ureters and bladder as visualized appear normal. SPLEEN:Normal appearance. PANCREAS: Appears normal. RETROPERITONEUM and MESENTERY: There is no mass, adenopathy or aortic aneurysm. GASTROINTESTINAL SYSTEM: Postoperative change related to partial colectomy. Abnormally dilated small bowel with air-fluid levels. The distal small bowel appears to be of normal caliber. This could represent an enteritis or small bowel ileus. However, I suspect this is an incomplete or early small bowel obstruction. PELVIS: No mass, adenopathy or free fluid. OSSEOUS STRUCTURES and ABDOMINAL WALL: There is an age-appropriate appearance of the osseous structures.No significant abdominal wall defect. OTHER: No free fluid or free air. IMPRESSION: Abnormally dilated small bowel. The findings probably represent an early or incomplete distal small bowel obstruction. It is also possible that this represents an enteritis or a small-bowel ileus. Other nonacute appearing findings as above. Please note that all CT scans at this facility use dose modulation, iterative reconstruction, and/or weight-based dosing when appropriate to reduce radiation dose to as low as reasonably achievable. Dictated by Edgar Longo MD @ 09/10/2024 7:36:57 AM (Electronically Signed)
[2024-09-10] MEDS: HYDROmorphone 0.5 mg/0.5 ml inj IVP ×2 (06:38→23:25)
[2024-09-10] MEDS: ONDANSETRON 2 MG/ML inj 4 MG IVP ×4 (06:39→21:13)
[2024-09-10 06:44] LABS: Basophils Absolute Auto 0.03 K/uL (0.00-0.30); Basophils Percent Auto 0.3 % (0.0-3.0); Eosinophils Absolute Auto 0.03 K/uL (0.00-0.50); Eosinophils Percent Auto 0.3 % (0.0-7.0); Immature Granulocytes Abs Auto 0.01 K/uL (0.00-0.30); Immature Granulocytes Pct Auto 0.1 %; Lymphocytes Percent Auto 7.2 % (20-44); Mean Corpuscular HGB Conc 34 gm/dL (32-36); Mean Corpuscular Hemoglobin 34 pg (26-34); Mean Corpuscular Volume 99 fL (80-100); Monocytes Percent Auto 5.7 % (0.0-11.0); Neutrophils Percent Auto 86.4 % (42.0-72.0); Platelet Count* 253 K/uL (140-440); RDW Coefficient of Variation % 13.3 % (11.5-15.5); Red Blood Count 4.46 m/uL (4.00-5.20); White Blood Count* 9.55 K/uL (4.50-11.00)
[2024-09-10 06:46] LABS: Slide Review Reflex No
[2024-09-10 07:00] LABS: Chloride* 102 mmol/L (96-114)
[2024-09-10 07:01] LABS: Albumin* 4.7 g/dL (3.3-5.0); Potassium* 3.4 mmol/L (3.6-5.1); Sodium* 138 mmol/L (135-149)
[2024-09-10 07:03] LABS: Blood Urea Nitrogen* 17 mg/dL (7-30); Creatinine* 0.8 mg/dL (0.5-1.5); Est. Creatinine Clearance* 46.43; Estimated Glomerular Filt Rate 79 ml/min
[2024-09-10 07:04] LABS: Alanine Aminotransferase* 24 U/L (4-35); Alkaline Phosphatase* 88 U/L (40-150); Anion Gap 9 mEq/L (7-15); Aspartate Amino Transferase* 45 U/L (12-35); Bilirubin Direct* 0.4 mg/dL (0.0-0.5); Bilirubin Total* 0.9 mg/dL (0.1-1.5); Calcium* 9.4 mg/dL (8.4-10.6); Carbon Dioxide* 27 mmol/L (20-32); Glucose* 145 mg/dL (60-115); Lipase* 99 U/L (23-300); Magnesium* 2.2 mg/dL (1.5-2.6); Total Protein* 7.6 g/dL (6.0-8.3)
--- OUTSIDE RECORDS SUMMARY | 2024-09-10 07:06 | XMS_ITS | Clinical Summary ---
Author Organization [facility] Address [address] [place] [id number] Care Team Providers Care Processing Rep Name Role Phone Steve Avery RN Unavailable Unavailable Carina Mckeon MD Primary Care Provide r Rowan Garcia MD Unavailable [phone] Allergies Active Allergy Reactions Criticality Noted Date [...] with positive rheumatoid fa ctor 09/09/2015 Methotrexate, exterminator, 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 Stage 3B. Grade 2. [address] positive. Pulmonary nodules noted on CT chest. Need follow up. MOHPA follows. Free intraperitoneal air Resolved Problems Problem Noted Date Diagnosed Date Resolved Date Cancer of skin, squamous cell 11/25/2016 12/16/2023 Rheumatoid arthritis(714.0) 02/10/2012 09/09/2015 Overview (02/10/2012): She sees Holly Dooley teacher vocational training Encounters Date Type Department Care Team Description 09/03/2024 10:10 AM CDT Orders Only [facility] [address] [place], [place] [address] Lab 09/03/2024 Travel 08/29/2024 Travel 08/20/2024 Refill [facility] [address] [place] [address] Cairna Mckeon MD Refill Request (Alprazolam) 08/14/2024 9:45 AM CDT Office Visit [facility] [address] [facility] [address] [place] [address] Indiana Ellis MD Derm Problem 08/14/2024 Travel 08/09/2024 Travel 07/31/2024 11:05 AM CDT Ancillary Procedure [facility] [address] [place] [phone] 07/31/2024 11:00 AM CDT Office Visit [facility] [address] [place] [phone] Des Harmon MD Results (Bilateral Knee) 07/31/2024 Travel 07/26/2024 Travel 07/19/2024 Telephone [facility] [address] [place] [phone] Des Harmon MD Appointment Request from Last [...] Relation Name Comments Alcohol/Drug Father Hypertension Father OR and in 70's Cancer Maternal Grandmother unknown [...] PM CDT Legal Sex Female 7:13 AM ROPEMAN Gender Identity Female 10/05/2020 7:41 PM CDT [...] Comments Blood Pressure 110/70 06/05/2024 10:03 AM ROPEMAN Pulse 77 06/05/2024 10:03 AM ROPEMAN Temperature 36.8 C (98.3 F) 10/11/2023 1:59 PM CDT Respiratory Rate 20 08/20/2023 3:14 PM CDT Oxygen Saturation 100% 06/05/2024 10:03 AM ROPEMAN Inhaled Oxygen Concentration - - Weight 60.8 kg (134 lb) 06/05/2024 10:03 AM ROPEMAN Height 165.7 cm (5' 5.25) 02/09/2024 8:19 AM CD T Body Mass Index 22.13 02/09/2024 8:19 AM CDT Plan of Treatment Upcoming Encounters Date Type Department Care Team (Late st Contact Info) Description 12/04/2024 10:00 AM CDT Office Visit [facility] [address] [facility] [address] [place] [address] David Hsu MD [address] [facility] [address] [place] [address] 08/14/2025 10:00 AM CDT Office Visit [facility] [address] [facility] [address] [place] [address] [place] [address] [place] [address] Health Maintenance Due Date Last Done Comments [...] history exists Medical Devices Implanted Type Area Sizing Machine Operator Device Identifier Shelf Expiration Date Model / Serial / Lot Set Wilton Intubationjedmed - [id number] Implanted:Qty: 1 on 08/20/2011 by Tracey Wright MD at [facility] [employer] [id number] / / [id number] Procedures Procedure Name Priority Date/Time Associated Diagnosis Comments DE BLOOD COUNT COMPLETE AUTO&AUTO DIFRNTL WBC Routine [...] COUNT 5.3 3.8 - 10.8 Thousand/ uL [facility] RED BLOOD CELL COUNT 4.26 3.80 - 5.10 Million/u L [facility] HEMOGLOBIN 14.1 11.7 - 15.5 g/dL [facility] HEMATOCRIT 43.6 35.0 - 45.0 % [facility] MCV 102.3(H) 80.0 - 100.0 fL [facility] MCH 33.1(H) 27.0 - 33.0 pg [facility] MCHC 32.3 32.0 - 36.0 g/dL [facility] Comment: For adults, a slight decrease in the calculated MCHC value (in the range of 30 to 32 g/dL) is most likely not clinically significant; however, it should be interpreted with caution in correlation with other red cell parameters and the patient's clinical condition. RDW 13.5 11.0 - 15.0 % [facility] PLATELET COUNT 234 140 - 400 Thousand/ uL [facility] MPV 10.8 7.5 - 12.5 fL [facility] ABSOLUTE NEUTROPHILS 3,593 1,500 - 7,800 cells/uL [facility] ABSOLUTE LYMPHOCYTES 1,023 850 - 3,900 cells/uL [facility] ABSOLUTE MONOCYTES 572 200 - 950 cells/uL [facility] ABSOLUTE EOSINOPHILS 69 15 - 500 cells/uL [facility] ABSOLUTE BASOPHILS 42 0 - 200 cells/uL [facility] NEUTROPHILS 67.8 % [facility] LYMPHOCYTES 19.3 % [facility] MONOCYTES 10.8 % [facility] EOSINOPHILS 1.3 % [facility] BASOPHILS 0.8 % [facility] Blood BLOOD SPECIMEN / Unknown 09/03/2024 10:24 AM CDT 09/03/2024 10:24 AM CDT Narrative [facility] - 09/03/2024 11:09 AM CDT SPLIT 09/03/2024 FROM [id number] us David Hsu MD HEMATOLOGY Final Resul t [facility] [address] [place] [address] [facility] [address], [place] [address] [place] [phone] * ALT (SGPT) (09/03/2024 10:22 AM CDT) ALT 17 6 - 29 U/L [facility] Blood BLOOD SPECIMEN / Unknown 09/03/2024 10:22 AM CDT 09/03/2024 10:23 AM CDT Narrative [facility] - 09/04/2024 4:40 AM CDT MULTIPLE TESTING PRIORITIES; ROUTINE TESTING TO FOLLOW. David Hsu MD CHEMISTRY Final Resul t Performing Organization Address [facility]/ZIP Co de Phone Number [facility] [address] [place] [phone], [facility] [address] [place] [address] * AST (SGOT) (09/03/2024 10:22 AM CDT) AST 26 10 - 35 U/L [facility] Blood BLOOD SPECIMEN / Unknown 09/03/2024 10:22 AM CDT 09/03/2024 10:23 AM CDT Narrative [facility] - 09/04/2024 4:40 AM CDT MULTIPLE TESTING PRIORITIES; ROUTINE TESTING TO FOLLOW. David Hsu MD CHEMISTRY Final Resul t Performing Organization Address [facility]/ZIP Co de Phone Number [facility] [address] [place] [address], [facility] [address] [place] [address] * XR KNEE WB 1 VIEW AP [...] LDL-C. Akshat CASTELLANOS et al. ARUNA. 2013;310(19): 3228-9119 (http://education.Diabetes America/faq/RPR187) CHOL/HDLC RATIO 3.6 <5.0 (calc) [facility] NON HDL CHOLESTEROL 174(H) <130 mg/dL (calc) [facility] Comment: For patients with diabetes plus 1 major ASCVD risk factor, treating to a non-HDL-C goal of <100 mg/dL (LDL-C of <70 mg/dL) is considered a therapeutic option. Blood BLOOD SPECIMEN / Unknown 02/09/2024 9:50 AM CDT 02/09/2024 9:51 AM CDT us Carina Mckeon MD CHEMISTRY Final Result [facility] [address] [place] [address], [facility] [address] [place] [address] * XR MAMMO SALLY BILAT SCREEN (10/25/2023 [...] care provider. XR MAMMO SALLY BILAT SCREEN [[id number]] CLINICAL HISTORY: This is an asymptomatic 68 [...] العلي MD - 07/26/2022 1:00 PM CDT [facility] [address], [address], [place] [address] Patient Name: Ember Menjivar Gender: Female Exam Date: 07/26/2022 Visit Number: [id number] Age: 66 Years 11 Months Date of : 1955 Attending MD: Tye اعللي MD Medical Record#: [id number] ----- Procedure: Colonoscopy Indications: Abdominal pain Personal [...] adhesions.Would favor empirical trial of once daily [id number] fibersupplements and/or laxative with MiraLax to ensure [...] Race: White Ethnicity: Not or Preferred Language: Japanese cc: Carina Mckeon MD cc: Carina Mckeon MD cc: Severo Gillette MD cc: Carina Mckeon MD [facility] [phone] us Tye العلي MD OTHER Final Result * ANTI HCV (12/28/2019 11:12 AM CDT) Pathologist [facility] HEPATITIS C ANTIBODY Non-React jeff Non-React jeff 12/28/2019 5:37 PM CDT [facility] Comment:Antibodies to HCV no t detected; does not exclude the possibility of exposure to HCV. Blood BLOOD SPECIMEN / Unknown Venipuncture / Unknown 12/28/2019 11:12 AM CDT 12/28/2019 11:12 AM CDT us Carina Mckeon MD SEND OUTS Final Result [facility] [address] [place] [address], [place] * (ABNORMAL) XR DXA BONE DENSITY 2 SITES AXIAL [50620.1] (11/14/2018 11:30 AM CDT) Anatomical Region Laterality [...] 9:54 AM 08/20/2011 4:33 PM Care Teams Processing Rep Relationship Specialty Start Date End Date Carina Mckeon MD [address] [place] [address] PCP - General Family Practice 06/14/14 Steve Avery, RN Psychologist Engineering Registered Nurse 03/31/12 Rowan Garcia MD [address] [facility] [address] [place] [address] Rheumatology Rheumatology 12/10/15 Lucero Downey, RN 10/20/12
--- OUTSIDE RECORDS SUMMARY | 2024-09-10 07:06 | XMS_ITS | Clinical Summary ---
Author Organization [place] Address [facility] 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 Gender Identity Not on file Sexual Orientation [...] on file Medical Devices Implanted Type Area Can Carrier Device Identifier Shelf Expiration Date Model / Serial / Lot Mesh Sling Y Shape Restorelle 24x4cm [id number] Implanted:Qty: 1 on 12/21/2017 by Philippe Miranda MD at [facility] Mesh N/A: Pelvis COLOPLAST 07/01/2020 [id number] / / [id number] Insurance [employer] Advance Directives For more information, please contact: [phone] * Full Code (Latest Code Status on File) Date Activated Date Inactivated Comments 12/21/2017 2:51 PM Care Teams Electroencephalographic Technologist Relationship Specialty Start Date End Date Carina Mckeon PCP - General Family Practice 11/29/17
--- NOTE | 2024-09-10 07:49 | CRLHL7_ITS ---
For Patients: As a result of the Cures Act, medical imaging exams and procedure reports are released immediately into your electronic medical record. You may view this report before your referring provider. If you have questions, please contact your health care provider. INDICATION: Low O2 sats TECHNIQUE: Chest 1 views. COMPARISON: None. FINDINGS: Cardiovasculature and mediastinum: Heart size is normal. Unremarkable mediastinum. Lungs and pleural spaces: No focal consolidation. No pneumothorax or pleural effusion. Bones and soft tissues: Enteric tube with tip out of [id number]. IMPRESSION: No acute findings. Dictated by Sudha Adkins MD @ 09/10/2024 8:52:02 AM (Electronically Signed)
--- NOTE | 2024-09-10 07:49 | CRLHL7_ITS ---
For Patients: As a result of the Century Cures Act, medical imaging exams and procedure reports are released immediately into your electronic medical record. You may view this report before your referring provider. If you have questions, please contact your health care provider. INDICATION: NG tube placement COMPARISON: Same day CT abdomen pelvis TECHNIQUE: 1 view abdomen, supine. FINDINGS: Devices: The enteric tube is in good position over the gastric bubble in the left upper quadrant. Small stool. Mildly dilated gas-filled bowel loops in the central abdomen. Anastomotic sutures in the right upper quadrant. Excreted contrast in the kidneys and collecting systems. Cholecystectomy clips. IMPRESSION: The NG tube is in good position for use. Dictated by Mónica Guerra MD @ 09/10/2024 8:50:42 AM (Electronically Signed)
[2024-09-10] MEDS: BENZOCAINE 20 % SPRAY 1 EACH PO (08:07)
[2024-09-10] MEDS: lidocaine HCL 2 % JELLY (TOP) STERILE 6 ML TOPICAL (08:07)
[2024-09-10] MEDS: HYDROmorphone 0.5 mg/0.5 ml inj 0.2 MG IVP ×7 (08:18→23:04)
[2024-09-10] MEDS: POTASSIUM CHLORIDE 10 MEQ/100 ML PIGGYBACK 100 MEQ IVPB (10:07)
[2024-09-10] MEDS: SODIUM CHLORIDE 0.9 % (FLUSH) 10 ML SYRINGE 5 ML IVF ×4 (10:09→14:46)
[2024-09-10 10:39] LABS: Appearance Urine Slightly Cloudy (Clear); Bilirubin Urine Negative (Negative); Blood Urine Trace-intact (Negative); Color Urine Yellow (Yellow); Glucose Urine Negative (Negative); Ketones Urine Negative (Negative); Leukocyte Esterase Urine Negative (Negative); Nitrite Urine Negative (Negative); Protein Urine Negative (Negative); Urobilinogen Urine 0.2 (0.2-1.0); pH Urine 8.5 (5.0-8.5)
[2024-09-10 10:49] LABS: RBC Urine 0-2 (0-2); WBC Urine 0-2 (0-5)
[2024-09-10 10:50] LABS: Squamous Epithelial Cell Urine Few (None-Few)
--- NOTE | 2024-09-10 10:59 | P.GSCN_ITS ---
History of Present Illness Consult details Date Seen: 09/10/24 Consult date: 09/10/24 Narrative: The patient is a 69-year-old female who developed abdominal pain last evening around 10:30 p.m.. She states that she felt fairly normal all day and then developed gas discomfort last evening. She stated that this came on suddenly. She thought that maybe she needed to have a bowel movement, however nothing came out when she went to the bathroom. She states that she was very uncomfortable throughout the night. She tried apple cider vinegar which did not help. Around 5:00 a.m. she had projectile vomiting and then around 6 she had diarrhea. Because her symptoms persisted, she came to the emergency department. She states that she had projectile vomiting again in the parking lot and had a small bowel movement which was not diarrhea. She states that she usually has bowel movements every morning but on Tuesday she had a diarrhea after lunch on Tuesday she also had nausea all day which was unusual for her. She has a history of right hemicolectomy in 2011 for right-sided colon cancer. In 2017 she developed intraperitoneal free air but this was treated conservatively - the cause is unknown but thought to be secondary to a very microscopic bowel perforation. She was worried because these symptoms felt the same as when she had her perforation in 2017. She takes methotrexate for rheumatoid arthritis. [facility] Medical History (Updated 09/10/24 @ 11:03 by Dayan Kaur MD) Uterine prolapse (12/21/17) ?N81.4 - Uterovaginal prolapse, unspecified (ICD-10) Free intraperitoneal air ?K66.8 - Other specified disorders of peritoneum (ICD-10) Free intraperitoneal air ?K66.8 - Other specified disorders of peritoneum (ICD-10) Female bladder prolapse (06/14/17) ?N81.10 - Cystocele, unspecified (ICD-10) SCCA (squamous cell carcinoma) of skin (02/09/24) ?C44.92 - Squamous cell carcinoma of skin, unspecified (ICD-10) Primary osteoarthritis of right knee (09/02/23) ?M17.11 - Unilateral primary osteoarthritis, right knee (ICD-10) Primary osteoarthritis of left knee (08/05/23) ?M17.12 - Unilateral primary osteoarthritis, left knee (ICD-10) Colonic cancer (03/31/12) ?C18.9 - Malignant neoplasm of colon, unspecified (ICD-10) Surgical History (Updated 09/10/24 @ 11:03 by Dayan Kaur MD) H/O right hemicolectomy ?Z90.49 - Acquired absence of other specified parts of digestive tract (ICD- 10) History of sacrocolpopexy (06/20/18) ?Z98.890 - Other specified postprocedural states (ICD-10) Social History What is your current living situation?: I presently have a place to live Problems where you live: no known problems Problems where you live details: none In the past 12 months, utilities in danger of being shut off: no In past 12 months, lack of transportation kept you from medical appts, meetings, work, or getting things needed for daily living: no In the past 12 mos, have been you worried that your food would run out before you had money to buy more?: never true In the past 12 mos, the food you bought just didn't last and you didn't have money to buy more?: never true Smoking Status: Never smoker Do you use any of these nicotine containing products: None Second hand tobacco smoke exposure: No How often do you have a drink containing alcohol: never AUDIT-C Alcohol total score: 0 Non-prescribed substance use: denies use Caffeine: Yes How often does anyone, including family, friends and others, physically hurt you : never How often does anyone, including family, friends and others, insult or talk down to you: never How often does anyone, including family, friends and others, threaten you with harm: never How often does anyone, including family, friends and others, scream or curse at you: never service: No Meds Home Medications and Allergies Home Medications ?Medication ?Instructions ?Recorded ?Confirmed ?Type alprazolam 0.5 mg tablet 0.5 - 1 mg PO HS PRN insomnia 09/10/24 09/10/24 History estradiol 0.01% (0.1 mg/gram) 1 g vaginal Q7D 09/10/24 09/10/24 History vaginal cream folic acid 1 mg tablet 1 mg PO DAILY 09/10/24 09/10/24 History methotrexate sodium 25 mg/mL 15 mg subcut Q7D 09/10/24 09/10/24 History injection solution Allergies Allergy/AdvReac Type Severity Reaction Status Date / Time Sulfa (Sulfonamide Allergy Mild Diarrhea Verified 09/10/24 07:30 Antibiotics) Exam Narrative: Exam Narrative: General appearance: Alert, cooperative, and in no distress Eyes: PERRLA, eye lids clear, and sclera white HENT: NG in place. Small amount of yellowish drainage noted Pulmonary: Breathing nonlabored on room air Cardiovascular Heart: Regular rate Extremities: warm and well perfused Gastrointestinal Abdominal: Abdomen is fairly flat. Upper midline incision consistent with prior lap right hemicolectomy. She is minimally tender to palpation. No guarding or rebound. Musculoskeletal: Extremities: Upper: Both upper extremities have normal joint range of motion and intact strength. Lower: Both lower extremities have normal joint range of motion and intact strength. Skin: Normal skin color, texture, and turgor. Neurologic: No focal deficits Psychiatric: Alert, oriented, cooperative, normal affect. Const: Vital Signs, click to edit/add: Vital Signs - 24 hr 09/10/24 06:32 09/10/24 06:42 09/10/24 06:43 Temperature 98.1 F Pulse Rate 83 Pulse Rate [Right Pulse Oximeter] 85 Pulse Rate [Right Radial] Respiratory Rate 18 18 Blood Pressure 129/81 Blood Pressure [Le ft Upper Arm] 138/89 Blood Pressure [Ri ght Arm] Pulse Oximetry 99 100 99 Oxygen Delivery Me thod Room Air Oxygen Flow Rate 09/10/24 07:00 09/10/24 07:01 09/10/24 07:28 Temperature Pulse Rate 68 69 70 Pulse Rate [Right Pulse Oximeter] Pulse Rate [Right Radial] Respiratory Rate Blood Pressure 123/73 Blood Pressure [Le ft Upper Arm] Blood Pressure [Ri ght Arm] Pulse Oximetry 98 95 98 Oxygen Delivery Me thod Oxygen Flow Rate 09/10/24 07:30 09/10/24 07:32 09/10/24 07:45 Temperature Pulse Rate 64 71 64 Pulse Rate [Right Pulse Oximeter] Pulse Rate [Right Radial] Respiratory Rate Blood Pressure 135/71 Blood Pressure [Le ft Upper Arm] Blood Pressure [Ri ght Arm] Pulse Oximetry 100 93 99 Oxygen Delivery Me thod Oxygen Flow Rate 09/10/24 07:47 09/10/24 08:00 09/10/24 08:01 Temperature Pulse Rate 82 79 Pulse Rate [Right Pulse Oximeter] Pulse Rate [Right Radial] Respiratory Rate Blood Pressure 134/83 Blood Pressure [Le ft Upper Arm] Blood Pressure [Ri ght Arm] Pulse Oximetry 99 97 99 Oxygen Delivery Me thod Nasal Cannula Oxygen Flow Rate 2 09/10/24 08:15 09/10/24 08:54 Temperature Pulse Rate 68 Pulse Rate [Right Pulse Oximeter] Pulse Rate [Right Radial] 65 Respiratory Rate 14 Blood Pressure Blood Pressure [Le ft Upper Arm] Blood Pressure [Ri ght Arm] 146/81 H Pulse Oximetry 98 97 Oxygen Delivery Me thod Room Air Oxygen Flow Rate Results Labs Labs: White blood cell count is normal but with a left shift. Potassium mildly low at 3.4. Remainder of electrolytes are normal. AST is 45 which is mildly elevated. Remainder of LFTs normal. Lactate is normal at 1. Lipase is normal. Imaging Abdomen CT scan report/results: report reviewed and image reviewed Additional studies: CT abdomen and pelvis done today: IMPRESSION: Abnormally dilated small bowel. The findings probably represent an early or incomplete distal small bowel obstruction. It is also possible that this represents an enteritis or a small-bowel ileus. Other nonacute appearing findings as above. 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 She has been stooling and vomiting. Findings could also represent enteritis. We discussed bowel obstruction and causes. Certainly she is at risk for adhesive obstruction. -I reviewed the images myself and with Radiology. No obvious internal hernia or mesenteric swirl. -recommend Gastrografin challenge to patient's NG tube. -discussed with patient that indications for exploration including failure to resolve after several days, severe persistent pain or systemic symptoms.
--- NOTE | 2024-09-10 14:23 | PM.IMHP1 ---
Assessment and Plan Assessment and plan (1) SBO (small bowel obstruction): Problem comment: - h/o abdominal surgery in 2012 for colon cancer. Also had chemo at the time, no radiation. - Unclear if this SBO is due to adhesions or inflammation - consult general surgery (I spoke with Dr. Kaur, who will see the patient) - NPO - NGT to LIS - Maintenance IVF Status: Acute (2) Hypoxia: Problem comment: hypoxia with 0.5 mg dilaudid IV, but this has resolved and she has done well with dilaudid 0.2 mg dose. 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 Status: Acute (7) Elevated LFTs: Problem comment: - mild ALT elevation - has h/o elevated LFTs several years ago when she used to have 1 glass wine per day while on methotrexate. When she completely abstained from alcohol, this resolved, and she has not had a drink since. Status: Acute (8) Insomnia: Problem comment: - takes 1mg Xanax nightly. Since she had O2 desat with IV dilaudid, and will be on low dose prn dilaudid for pain control, I have ordered half dose of Xanax prn nightly and will monitor continuous pulse ox Status: Chronic Hospitalist- H&P: HPI History of Present Illness Time Seen by Provider: 09:10 Date Seen: 09/10/24 Chief complaint: abdominal pain, vomit, Narrative: Ember Russell Aron Sandoval is a 69 year old female who is immunosuppressed from chronic methotrexate treatment for rheumatoid arthritis and has a history of colon cancer for which she had partial colon resection in 2011 and then chemotherapy, but no radiation presented through the emergency department for concerns of nausea and vomiting. She has actually been sick on and off for a few days. It started with some diarrhea on and then she felt nauseous on Tuesday with some abdominal pain, but by Tuesday she felt really well. Last night she started having felt like really severe gas pains. The pain was constant, but much worse at certain times, like it was coming in waves. She felt extremely nauseous, but did not vomit until this morning. She had tried to sip on some water that had some apple cider vinegar in it, thinking that would help the gas pains, but then had which she describes as projectile vomiting suddenly this morning around 6:00 a.m.. At the same time she had sudden incontinence of liquidy stool. She had not had any stool or bowel movements overnight otherwise. She continues to feel very painful. To be clear when she describes feeling ?gassy,?she tells me that she has not had flatus but only feels like she needs to pass gas but can not. She denies any fevers or chills. No recent illnesses. In addition to her history of colon cancer and partial colon resection, she had a bowel perforation about 8 years ago for which she was sent to [place]. She had a cholecystectomy in 1992. Review of Systems Status of ROS: Reports: 10 or more systems reviewed and unremarkable except as noted in History and below [facility] Medical History (Updated 09/10/24 @ 16:17 by Belinda Cerrato MD) Insomnia ?G47.00 - Insomnia, unspecified (ICD-10) Rheumatoid arthritis with positive rheumatoid factor (09/09/15) ?M05.9 - Rheumatoid arthritis with rheumatoid factor, unspecified (ICD-10) Uterine prolapse (12/21/17) ?N81.4 - Uterovaginal prolapse, unspecified (ICD-10) Free intraperitoneal air ?K66.8 - Other specified disorders of peritoneum (ICD-10) Female bladder prolapse (06/14/17) ?N81.10 - Cystocele, unspecified (ICD-10) SCCA (squamous cell carcinoma) of skin (02/09/24) ?C44.92 - Squamous cell carcinoma of skin, unspecified (ICD-10) Primary osteoarthritis of right knee (09/02/23) ?M17.11 - Unilateral primary osteoarthritis, right knee (ICD-10) Primary osteoarthritis of left knee (08/05/23) ?M17.12 - Unilateral primary osteoarthritis, left knee (ICD-10) Colonic cancer (03/31/12) ?C18.9 - Malignant neoplasm of colon, unspecified (ICD-10) Surgical History (Updated 09/10/24 @ 16:08 by Belinda Cerrato MD) History of esophagogastroduodenoscopy (EGD) ?Z98.890 - Other specified postprocedural states (ICD-10) Hx of cholecystectomy ?Z90.49 - Acquired absence of other specified parts of digestive tract (ICD-10) History of nasal surgery ?Z98.890 - Other specified postprocedural states (ICD-10) H/O right hemicolectomy ?Z90.49 - Acquired absence of other specified parts of digestive tract (ICD-10) History of sacrocolpopexy (06/20/18) ?Z98.890 - Other specified postprocedural states (ICD-10) Social History What is your current living situation?: I presently have a place to live Problems where you live: no known problems Problems where you live details: none In the past 12 months, utilities in danger of being shut off: no In past 12 months, lack of transportation kept you from medical appts, meetings, work, or getting things needed for daily living: no In the past 12 mos, have been you worried that your food would run out before you had money to buy more?: never true In the past 12 mos, the food you bought just didn't last and you didn't have money to buy more?: never true Smoking Status: Never smoker Do you use any of these nicotine containing products: None Second hand tobacco smoke exposure: No How often do you have a drink containing alcohol: never AUDIT-C Alcohol total score: 0 Non-prescribed substance use: denies use Caffeine: Yes How often does anyone, including family, friends and others, physically hurt you: never How often does anyone, including family, friends and others, insult or talk down to you: never How often does anyone, including family, friends and others, threaten you with harm: never How often does anyone, including family, friends and others, scream or curse at you: never service: No Meds Home Medications and Allergies Home Medications ?Medication ?Instructions ?Recorded ?Confirmed ?Type alprazolam 0.5 mg tablet 0.5 - 1 mg PO HS PRN insomnia 09/10/24 09/10/24 History estradiol 0.01% (0.1 mg/gram) 1 g vaginal Q7D 09/10/24 09/10/24 History vaginal cream folic acid 1 mg tablet 1 mg PO DAILY 09/10/24 09/10/24 History methotrexate sodium 25 mg/mL 15 mg subcut Q7D 09/10/24 09/10/24 History injection solution Allergies Allergy/AdvReac Type Severity Reaction Status Date / Time Sulfa (Sulfonamide Allergy Mild Diarrhea Verified 09/10/24 07:30 Antibiotics) Exam Narrative: Exam Narrative: General: Appears uncomfortable. Restless. Awake alert oriented x3. HEENT: Normocephalic atraumatic, pupils equally round and reactive to light and accommodation. Oropharynx clear. Mucous membranes are moist. No cervical lymphadenopathy, thyromegaly or carotid bruits. No JVD. Cardiovascular: Regular rate and rhythm. No murmurs, gallops, or rubs. Chest: No increased work of breathing. Clear to auscultation bilaterally. No crackles or wheezes. Abdomen: Bowel sounds absent. Soft, mildly distended, diffusely tender, especially around the umbilicus and epigastrium. No hepatosplenomegaly or masses. Extremities: No edema, no cyanosis or clubbing. Skin: No jaundice, no pallor, no rashes on visible skin. Const: Vital Signs, click to edit/add: Vital Signs - 24 hr 09/10/24 06:32 09/10/24 06:42 09/10/24 06:43 Temperature 98.1 F Pulse Rate 83 Pulse Rate [Right Pulse Oximeter] 85 Pulse Rate [Right Radial] Respiratory Rate 18 18 Blood Pressure 129/81 Blood Pressure [Le ft Upper Arm] 138/89 Blood Pressure [Ri ght Arm] Pulse Oximetry 99 100 99 Oxygen Delivery Me thod Room Air Oxygen Flow Rate 09/10/24 07:00 09/10/24 07:01 09/10/24 07:28 Temperature Pulse Rate 68 69 70 Pulse Rate [Right Pulse Oximeter] Pulse Rate [Right Radial] Respiratory Rate Blood Pressure 123/73 Blood Pressure [Le ft Upper Arm] Blood Pressure [Ri ght Arm] Pulse Oximetry 98 95 98 Oxygen Delivery Me thod Oxygen Flow Rate 09/10/24 07:30 09/10/24 07:32 09/10/24 07:45 Temperature Pulse Rate 64 71 64 Pulse Rate [Right Pulse Oximeter] Pulse Rate [Right Radial] Respiratory Rate Blood Pressure 135/71 Blood Pressure [Le ft Upper Arm] Blood Pressure [Ri ght Arm] Pulse Oximetry 100 93 99 Oxygen Delivery Me thod Oxygen Flow Rate 09/10/24 07:47 09/10/24 08:00 09/10/24 08:01 Temperature Pulse Rate 82 79 Pulse Rate [Right Pulse Oximeter] Pulse Rate [Right Radial] Respiratory Rate Blood Pressure 134/83 Blood Pressure [Le ft Upper Arm] Blood Pressure [Ri ght Arm] Pulse Oximetry 99 97 99 Oxygen Delivery Me thod Nasal Cannula Oxygen Flow Rate 2 09/10/24 08:15 09/10/24 08:54 Temperature Pulse Rate 68 Pulse Rate [Right Pulse Oximeter] Pulse Rate [Right Radial] 65 Respiratory Rate 14 Blood Pressure Blood Pressure [Le ft Upper Arm] Blood Pressure [Ri ght Arm] 146/81 H Pulse Oximetry 98 97 Oxygen Delivery Me thod Room Air Oxygen Flow Rate Hospitalist - H&P: Result Labs Labs: Short CBC 09/10/24 Range/Units 06:40 WBC 9.55 (4.50-11.00) K/uL Hgb 15.0 (12.0-16.0) gm/dL Hct 44.0 (33.0-51.0) % Plt Count 253 (140-440) K/uL BMP 09/10/24 06:40 Sodium 138 Potassium 3.4 L Chloride 102 Carbon Dioxide 27 BUN 17 Creatinine 0.8 Glucose 145 H Calcium 9.4 Liver Function 09/10/24 Range/Units 06:40 Total Bilirubin 0.9 (0.1-1.5) mg/dL Direct Bilirubin 0.4 (0.0-0.5) mg/dL AST 45 H (12-35) U/L ALT 24 (4-35) U/L Alkaline Phosphatase 88 (40-150) U/L Albumin 4.7 (3.3-5.0) g/dL Urine 09/10/24 Range/Units 06:37 Urine Color Yellow (Yellow) Urine Appearance Slightly Cloudy A (Clear) Urine pH 8.5 (5.0-8.5) Ur Specific [place] 1.010 (1.000-1.030) Urine Protein Negative (Negative) Urine Glucose (UA) Negative (Negative) Ordering Physician: Daniel Martinez M.D. Date of Service: 09/10/24 Procedure(s): CT abdomen pelvis w con Accession Number(s): [id number] cc: Carina Mckeon M.D.; Daniel Martinez M.D.~ For Patients: As a result of the 21st Century Cures Act, medical imaging exams and procedure reports are released immediately into your electronic medical record. You may view this report before your referring provider. If you have questions, please contact your health care provider. INDICATION: Abdominal pain. History of partial colon resection, hysterectomy, cholecystectomy and appendectomy. COMPARISON: August 09, 2016 TECHNIQUE: CT examination of the abdomen and pelvis was performed following the uneventful intravenous administration of 64 cc of Isovue 370. Thin section axial images were obtained from the lung bases through the pubic symphysis. Oral contrast was not administered. Please note that all CT scans at this facility use dose modulation, iterative reconstruction, and/or weight-based dosing when appropriate to reduce radiation dose to as low as reasonably achievable. FINDINGS: LUNG BASES: Basilar atelectasis or scarring. Left lower lobe granuloma.The heart is enlarged the lung bases LIVER/BILIARY SYSTEM:No focal hepatic mass. There has been a cholecystectomy. What is likely a dilated cystic duct remains. This was present on the prior study and appears unchanged. Mildly prominent biliary ductal system unchanged likely capacitance phenomena from the cholecystectomy. ADRENALS: Normal KIDNEYS, URETERS and BLADDER:The kidneys appear normal. No visible mass, calculus or hydronephrosis. The ureters and bladder as visualized appear normal. SPLEEN:Normal appearance. PANCREAS: Appears normal. RETROPERITONEUM and MESENTERY: There is no mass, adenopathy or aortic aneurysm. GASTROINTESTINAL SYSTEM: Postoperative change related to partial colectomy. Abnormally dilated small bowel with air-fluid levels. The distal small bowel appears to be of normal caliber. This could represent an enteritis or small bowel ileus. However, I suspect this is an incomplete or early small bowel obstruction. PELVIS: No mass, adenopathy or free fluid. OSSEOUS STRUCTURES and ABDOMINAL WALL: There is an age-appropriate appearance of the osseous structures.No significant abdominal wall defect. OTHER: No free fluid or free air. IMPRESSION: Abnormally dilated small bowel. The findings probably represent an early or incomplete distal small bowel obstruction. It is also possible that this represents an enteritis or a small-bowel ileus. Other nonacute appearing findings as above. Please note that all CT scans at this facility use dose modulation, iterative reconstruction, and/or weight-based dosing when appropriate to reduce radiation dose to as low as reasonably achievable. Dictated by Edgar Longo MD @ 09/10/2024 7:36:57 AM (Electronically Signed) Ordering Physician: Daniel Martinez M.D. Date of Service: 09/10/24 Procedure(s): XR abdomen 1V Accession Number(s): [id number] cc: Carina Mckeon M.D.; Daniel Martinez M.D.~ For Patients: As a result of the Cures Act, medical imaging exams and procedure reports are released immediately into your electronic medical record. You may view this report before your referring provider. If you have questions, please contact your health care provider. INDICATION: NG tube placement COMPARISON: Same day CT abdomen pelvis TECHNIQUE: 1 view abdomen, supine. FINDINGS: Devices: The enteric tube is in good position over the gastric bubble in the left upper quadrant. Small stool. Mildly dilated gas-filled bowel loops in the central abdomen. Anastomotic sutures in the right upper quadrant. Excreted contrast in the kidneys and collecting systems. Cholecystectomy clips. IMPRESSION: The NG tube is in good position for use. Dictated by Mónica Guerra MD @ 09/10/2024 8:50:42 AM (Electronically Signed) Ordering Physician: Daniel Martinez M.D. Date of Service: 09/10/24 Procedure(s): XR chest 1V portable Accession Number(s): [id number] cc: Carina Mckeon M.D.; Daniel Martinez M.D.~ For Patients: As a result of the s Act, medical imaging exams and procedure reports are released immediately into your electronic medical record. You may view this report before your referring provider. If you have questions, please contact your health care provider. INDICATION: Low O2 sats TECHNIQUE: Chest 1 views. COMPARISON: None. FINDINGS: Cardiovasculature and mediastinum: Heart size is normal. Unremarkable mediastinum. Lungs and pleural spaces: No focal consolidation. No pneumothorax or pleural effusion. Bones and soft tissues: Enteric tube with tip out of [id number]. IMPRESSION: No acute findings. Dictated by Sudha Adkins MD @ 09/10/2024 8:52:02 AM (Electronically Signed)
--- NOTE | 2024-09-10 15:32 | CRLHL7_ITS ---
For Patients: As a result of the Century Cures Act, medical imaging exams and procedure reports are released immediately into your electronic medical record. You may view this report before your referring provider. If you have questions, please contact your health care provider. INDICATION: NG tube TECHNIQUE: Single-view abdomen. FINDINGS: NG tube in the stomach. Mild gas distended small bowel loops. Dictated by Cookie Maldonado MD @ 09/10/2024 4:17:35 PM (Electronically Signed)
[2024-09-10] MEDS: DIATRIZOATE MEGLUMINE, SODIUM 120 ML SOLUTION 90 ML NG (16:28)
[2024-09-10] MEDS: BENZOCAINE/MENTHOL 1 EACH LOZENGE MUCOUS MEM (18:00)
[2024-09-10] MEDS: LACTATED RINGERS 1000 ML 1,000 ML 75 ML IV (18:04)
--- NOTE | 2024-09-10 18:36 | PC.NURSE ---
End of Shift Note: Patient was admitted from the ER around 1100. Had a NG placed in the ER it is measuring 58 at the nose. She was having a lot of nausea and retching when she first arrived. Received meds for pain and nause see CLARIBEL. Once her stomach appeared to settle down put her NG to continuous suction for 2 hours and then was able to administer her gastrograffin. Before administration did test the PH level with the right spot which was measuring at 7.0. Notified Dr. Kaur obtained a abdomen x-ray to confirm NG was in correct spot before administration of gastrograffin. Also applied aromatherapy patch to see if she would get relief more and now appears to be feeling better after the gastrograffin was administred. she was clamped for 2 hours after and have just now put her back to intermittent suction. She has been up several times to the BR. She did tolerate having NG clamped for two hours did not complain of any nausea. Will perform x-ray in the am as she maybe sleeping at midnight which would in 8 hours from when she recieved the gatrograffin.
[2024-09-10] MEDS: diazePAM 5 MG/ML inj 2.5 MG IV (21:13)
[2024-09-10] MEDS: droperidoL 2.5 MG/ML inj 0.625 MG IV (23:06)
[2024-09-10] MEDS: POTASSIUM CHLORIDE 10 MEQ, LIDOCAINE 1 % 1 ML in 0.9 % SODIUM CHLORIDE 100 ml 100 ML 106 MEQ IVPB (23:57)
[2024-09-11] MEDS: POTASSIUM CHLORIDE 10 MEQ, LIDOCAINE 1 % 1 ML in 0.9 % SODIUM CHLORIDE 100 ml 100 ML 106 MEQ IVPB (01:03)
[2024-09-11] MEDS: ONDANSETRON 2 MG/ML inj 4 MG IVP ×6 (01:19→22:52)
[2024-09-11] MEDS: HYDROmorphone 0.5 mg/0.5 ml inj IVP ×9 (01:19→23:03)
[2024-09-11 01:25] VITALS: BP 121/75; PULSE 78; RESP 16; TEMP 37.1; O2SAT 97
--- NOTE | 2024-09-11 05:46 | PC.NURSE ---
Pt is alert and oriented x3. Afebrile. Pt reports 5-8/10 pain in abdomen, pain managed with PRN medication. Pt reports nausea, managed with PRN medications. Pt has right nare NG tube on low intermittent suction at ?58? cm. NG tube is patent and started with draining green/yellow liquid now draining light brown liquid. Pt is up SBA, voiding and tolerating an NPO diet with sips and chips.
[2024-09-11 06:02] LABS: Basophils Percent Auto 0.1 % (0.0-3.0); Eosinophils Percent Auto 0.2 % (0.0-7.0); Hematocrit 44.8 % (33.0-51.0); Hemoglobin* 14.3 gm/dL (12.0-16.0); Immature Granulocytes Pct Auto 0.2 %; Lymphocytes Percent Auto 5.9 % (20-44); Mean Corpuscular HGB Conc 32 gm/dL (32-36); Mean Corpuscular Hemoglobin 33 pg (26-34); Mean Corpuscular Volume 103 fL (80-100); Monocytes Percent Auto 6.9 % (0.0-11.0); Neutrophils Percent Auto 86.7 % (42.0-72.0); Platelet Count* 243 K/uL (140-440); RDW Coefficient of Variation % 13.7 % (11.5-15.5); Red Blood Count 4.36 m/uL (4.00-5.20); White Blood Count* 12.38 K/uL (4.50-11.00)
[2024-09-11 06:03] LABS: Slide Review Reflex No
[2024-09-11 06:15] LABS: Albumin* 4.2 g/dL (3.3-5.0); Chloride* 106 mmol/L (96-114); Potassium* 4.6 mmol/L (3.6-5.1); Sodium* 140 mmol/L (135-149)
[2024-09-11 06:17] LABS: Blood Urea Nitrogen* 14 mg/dL (7-30); Creatinine* 0.8 mg/dL (0.5-1.5); Est. Creatinine Clearance* 46.43; Estimated Glomerular Filt Rate 79 ml/min
[2024-09-11 06:18] LABS: Alanine Aminotransferase* 21 U/L (4-35); Alkaline Phosphatase* 60 U/L (40-150); Anion Gap 6 mEq/L (7-15); Aspartate Amino Transferase* 40 U/L (12-35); Calcium* 9.1 mg/dL (8.4-10.6); Carbon Dioxide* 28 mmol/L (20-32); Glucose* 140 mg/dL (60-115); Magnesium* 2.2 mg/dL (1.5-2.6)
--- NOTE | 2024-09-11 06:30 | CRLHL7_ITS ---
For Patients: As a result of the Cures Act, medical imaging exams and procedure reports are released immediately into your electronic medical record. You may view this report before your referring provider. If you have questions, please contact your health care provider. INDICATION: SBO. Gastro challenge. (Sic) COMPARISON: Radiographs dated 09/10/2024 at 1544 hours and [address] dated 09/10/2024 performed at 0722 hours. TECHNIQUE: One view (2 images). FINDINGS: In-situ nasogastric tube. Persistent clustered dilated loops of small bowel in the central abdomen. Caliber of the dilated small-bowel is diminished compared to the most recent prior radiographic examination performed 09/10/2024 at 1544 hours. No identifiable enteric contrast material. Faint excreted intravenous contrast material is again noted within the bladder. Review of the prior abdominopelvic CT performed 09/10/2024 is notable for a transition from dilated to nondilated small bowel in the right lower quadrant (series 2; image 82). No obstructing lesion is identified at that location. Findings are consistent with a mechanical small bowel obstruction likely due to an adhesion. Redemonstration of right upper quadrant cholecystectomy clips. IMPRESSION: 1. In-situ nasogastric tube. 2. Persistent clustered dilated loops of small bowel in the central abdomen. Caliber of the dilated small-bowel is diminished compared to the most recent prior radiographic examination performed 09/10/2024 at 1544 hours. 3. No identifiable enteric contrast material. Dictated by Juma Munson MD @ 09/11/2024 7:14:20 AM (Electronically Signed)
[2024-09-11] MEDS: LACTATED RINGERS 1000 ML 1,000 ML 75 ML IV ×2 (06:37→19:55)
[2024-09-11 07:00] VITALS: BP 127/75; PULSE 82; RESP 18; TEMP 36.6; O2SAT 96
[2024-09-11 07:53] LABS: C Reactive Protein* 0.8 mg/dL (0.5-1.0)
[2024-09-11 08:52] LABS: Lactate* 1.3 mmol/L (0.5-1.9)
--- NOTE | 2024-09-11 08:52 | PM.GSPN ---
Subjective Subjective Date Seen: 09/11/24 Interval history: Ember feels better today however she still does have a fair amount of nausea. She states that NG tube was clamped after Gastrografin administration yesterday and then with the clamping she did have a fair amount of nausea. Afterwards she vomited she thinks 1-2 cups. She is not passing gas. She has been getting pain medication fairly frequently but it comes and goes. No bowel movements. Exam Narrative: Exam Narrative: General: No acute distress CV: Regular rate and rhythm Respiratory: Breathing nonlabored on room air HEENT: NG in place. Output is more bilious today. 1 L out since yesterday. Abdomen: Soft, nondistended, minimally tender to palpation in the lower abdomen. Const: Vital Signs, click to edit/add: Vital Signs - 24 hr 09/10/24 08:54 09/10/24 15:00 09/10/24 15:00 Temperature 98.6 F Pulse Rate [Right Pulse Oximeter] 75 Pulse Rate [Right Radial] 65 Respiratory Rate 14 16 16 Blood Pressure [Le ft Arm] 126/73 Blood Pressure [Ri ght Arm] 146/81 H Pulse Oximetry 97 97 97 Oxygen Delivery Me thod Room Air Room Air Room Air Oxygen Flow Rate 09/10/24 19:00 09/10/24 23:20 09/10/24 23:20 Temperature 97.2 F L 99.0 F Pulse Rate [Right Pulse Oximeter] 77 72 Pulse Rate [Right Radial] Respiratory Rate 16 16 16 Blood Pressure [Le ft Arm] 126/76 Blood Pressure [Ri ght Arm] 134/72 Pulse Oximetry 99 97 96 Oxygen Delivery Me thod Room Air Room Air Room Air Oxygen Flow Rate 0 09/11/24 01:25 Temperature 98.8 F Pulse Rate [Right Pulse Oximeter] 78 Pulse Rate [Right Radial] Respiratory Rate 16 Blood Pressure [Le ft Arm] Blood Pressure [Ri ght Arm] 121/75 Pulse Oximetry 97 Oxygen Delivery Me thod Room Air Oxygen Flow Rate Labs/Imaging Imaging Imaging: X-ray abdomen IMPRESSION: 1. In-situ nasogastric tube. 2. Persistent clustered dilated loops of small bowel in the central abdomen. Caliber of the dilated small-bowel is diminished compared to the most recent prior radiographic examination performed 09/10/2024 at 1544 hours. 3. No identifiable enteric contrast material. Dictated by Juma Munson MD @ 09/11/2024 7:14:20 AM Progress Note:A&P Assessment and plan (1) Rheumatoid arthritis with positive rheumatoid factor: Status: Chronic (2) SBO (small bowel obstruction): Status: Acute (3) Abdominal pain, vomiting, and diarrhea: Status: Acute Plan The patient is a 69-year-old female with likely small bowel obstruction, though picture is somewhat obscured with diarrheal illness prior to presentation. She has mostly nausea ongoing but does still have some pain requiring IV pain meds. She feels overall better than yesterday. -Gastrografin was not seen on her x-ray today nor has she had return of bowel function. Small bowel loops appear less distended, however I suspect that the Gastrografin was suctioned out or vomited out after clamping trial. -I recommend repeat Gastrografin challenge today since clinically she is stable. Will try to get the patient's nausea under better control with scopolamine. She has not had significantly high NG output. -I explained to the patient that in the setting was bowel obstruction we would try to get resolution without operative intervention if possible, however for pain begins to worsen, we may need to consider exploration. Generally, we give the Gastrografin challenge 48 hours to allow the contrast to pass all the way through. -I am somewhat concerned with her elevated white blood cell count today, however CRP and lactate are normal. We will keep an eye on how much pain medication she is getting. I have asked the nurses to let me know her pain seems to be getting significantly worse.
[2024-09-11] MEDS: SCOPOLAMINE 1 MG/3 DAY PATCH 1 PATCH TRANSDERMA (09:27)
[2024-09-11] MEDS: SODIUM CHLORIDE 0.9 % (FLUSH) 10 ML SYRINGE 5 ML IVF ×4 (09:28→23:02)
[2024-09-11 11:00] VITALS: BP 122/60; PULSE 71; RESP 18; TEMP 37; O2SAT 95
[2024-09-11] MEDS: DIATRIZOATE MEGLUMINE, SODIUM 120 ML SOLUTION 90 ML NG (11:44)
--- NOTE | 2024-09-11 13:38 | PM.IMPN1 ---
Assessment and Plan Assessment and plan (1) SBO (small bowel obstruction): Problem comment: - h/o abdominal surgery in 2011 for colon cancer. Also had chemo at the time, no radiation. - Unclear if this SBO is due to adhesions or inflammation - consult general surgery (I spoke with Dr. Kaur, who will see the patient) - NPO - NGT to LIS - Maintenance IVF - 09/11 Repeating gastrografin study. Continue NGT to LIS afterward. Appreciate Dr. Kaur's recommendations. Status: Acute (2) Hypokalemia: Problem comment: - mild, asymptomatic - due to SBO, replace with IV KCl. - 09/11 resolved Status: Resolved (3) Elevated LFTs: Problem comment: - mild ALT elevation, improving - has h/o elevated LFTs several years ago when she used to have 1 glass wine per day while on methotrexate. When she completely abstained from alcohol, this resolved, and she has not had a drink since. Status: Acute (4) Insomnia: Problem comment: - takes 1mg Xanax nightly. Since she had O2 desat with IV dilaudid, and will be on low dose prn dilaudid for pain control, I have ordered half dose of Xanax prn nightly and will monitor continuous pulse ox - 09/11 continue Xanax 0.5 mg hs prn Status: Chronic (5) Immunosuppression: Problem comment: on methotrexate for RA Status: Chronic (6) Methotrexate, [facility], current use: Status: Chronic (7) Rheumatoid arthritis with positive rheumatoid factor: Problem comment: - chronic methotrexate injections Status: Chronic (8) Hypoxia: Problem comment: - 09/10 hypoxia with 0.5 mg dilaudid IV, but this has resolved and she has done well with dilaudid 0.2 mg dose. Monitor on continuous pulse ox - Tolerating dilaudid 0.5 mg now without hypoxia. Resolved. Status: Resolved Total Time Spent Total Time Spent: Today I spent 50 minutes seeing the patient, discussion with patient's , discussion with Dr. Kaur, reviewing Expanse and EPIC notes/diagnostics/labs, discussing the care plan with our care team that includes social work, PT/OT, pharmacy, RT, senior living and documenting my impressions and plan in the medical record. Subjective Time Seen by Provider: 10:00 Date Seen: 05/13/25 Interval history: Ember says that she felt better yesterday for a bit after getting the Gastrografin, but then the NGT was kinked when she got hooked back up to suction. She says that caused her to vomit. She hasn't had any more emesis since then. There was no Gastrografin on the Xray this morning. Dr. Kaur would like to repeat the Gastrografin study today, and spoke with her about it this morning. She tells me that she woke from a deep sleep to speak with Dr. Kaur and now has a lot of questions about the study. I answered her questions. Exam Narrative: Exam Narrative: General: No acute distress. Awake alert oriented. NGT in nares. Cardiovascular: Regular rate and rhythm. No murmurs, gallops, or rubs. Chest: No increased work of breathing. Clear to auscultation bilaterally. No crackles or wheezes. Abdomen: Bowel sounds absent. Soft, less distended, diffusely tender, around the umbilicus and LLQ. No rebound tenderness or guarding. Const: Vital Signs, click to edit/add: Vital Signs - 24 hr 09/10/24 15:00 09/10/24 15:00 09/10/24 19:00 Temperature 98.6 F 97.2 F L Pulse Rate [Right Pulse Oximeter] 75 77 Respiratory Rate 16 16 16 Blood Pressure [Le ft Arm] 126/73 Blood Pressure [Ri ght Arm] 134/72 Pulse Oximetry 97 97 99 Oxygen Delivery Me thod Room Air Room Air Room Air Oxygen Flow Rate 09/10/24 23:20 09/10/24 23:20 09/11/24 01:25 Temperature 99.0 F 98.8 F Pulse Rate [Right Pulse Oximeter] 72 78 Respiratory Rate 16 16 16 Blood Pressure [Le ft Arm] 126/76 Blood Pressure [Ri ght Arm] 121/75 Pulse Oximetry 97 96 97 Oxygen Delivery Me thod Room Air Room Air Room Air Oxygen Flow Rate 0 09/11/24 07:00 09/11/24 07:00 09/11/24 11:00 Temperature 97.9 F 98.6 F Pulse Rate [Right Pulse Oximeter] 82 71 Respiratory Rate 18 18 18 Blood Pressure [Le ft Arm] 127/75 122/60 Blood Pressure [Ri ght Arm] Pulse Oximetry 96 96 95 Oxygen Delivery Me thod Room Air Room Air Room Air Oxygen Flow Rate Labs Labs: Laboratory Results - last 24 hr 09/11/24 09/11/24 05:45 07:37 WBC 12.38 H RBC 4.36 Hgb 14.3 Hct 44.8 MCV 103 H MCH 33 MCHC 32 RDW Coeff of Elena 13.7 Plt Count 243 Neut % (Auto) 86.7 H Lymph % (Auto) 5.9 L [place] % (Auto) 6.9 Eos % (Auto) 0.2 Baso % (Auto) 0.1 Neut # (Auto) 10.70 H Lymph # (Auto) 0.70 L [place] # (Auto) 0.90 Eos # (Auto) 0.00 Baso # (Auto) 0.00 Abs Immat Gran (auto) 0.00 Imm/Tot Granulo (auto) 0.2 Sodium 140 Potassium 4.6 Chloride 106 Carbon Dioxide 28 Anion Gap 6 L BUN 14 Creatinine 0.8 Estimated Creat Clear 46.43 Estimated GFR 79 Glucose 140 H Lactate 1.3 Calcium 9.1 Magnesium 2.2 Total Bilirubin 1.0 AST 40 H ALT 21 Alkaline Phosphatase 60 C-Reactive Protein 0.8 Total Protein 7.0 Albumin 4.2 Lab Acknowledgement Test Added
[2024-09-11 15:00] VITALS: BP 135/86; PULSE 76; RESP 18; TEMP 37.1; O2SAT 97
--- NOTE | 2024-09-11 15:11 | PC.SOCIAL ---
Social Work Initial Assessment: SW introduced self and role. Patient states that she has no concerns or questions and that she has everything taken care of at home. Patient states that right now she is trying to distract from the nausea she is feeling, but other than that things are going okay. SW to assist if needs arise.
[2024-09-11 19:00] VITALS: BP 125/65; PULSE 68; RESP 16; TEMP 37.1; O2SAT 97
--- NOTE | 2024-09-11 19:50 | CRLHL7_ITS ---
For Patients: As a result of the Century Cures Act, medical imaging exams and procedure reports are released immediately into your electronic medical record. You may view this report before your referring provider. If you have questions, please contact your health care provider. INDICATION: Eight hours after Gastrografin small-bowel obstruction TECHNIQUE: Two view abdomen. Comparison x-rays 09/11/2024 FINDINGS: Similar dilated small bowel loops which appears stable to minimally increased measuring up to 3.4 centimeters no contrast is seen within the small bowel loops. NG tube in the stomach. Dictated by Cookie Maldonado MD @ 09/11/2024 8:45:41 PM (Electronically Signed)
--- NOTE | 2024-09-11 20:01 | PC.NURSE ---
End of Shift ([id number]): Patient pleasant and cooperative, A&O. VSS, afebrile. Pt reports pain in her abdomen this shift, managed with PRN medication, see JUN. Pt also reports feeling nauseas this shift, managed with PRN medication, see JUN. NG to LIS at 58 in right nare. Pt has been up walking in the halls, SBA. NPO.
[2024-09-11] MEDS: PROCHLORPERAZINE 5 MG/ML VIAL IV (21:01)
[2024-09-11 23:00] VITALS: BP 123/73; PULSE 90; RESP 16; TEMP 37.1; O2SAT 97
[2024-09-12] VITALS (21 sets, daily range): BP systolic 107–131; BP diastolic 59–85; PULSE 64–82; RESP 14–18; TEMP 36.4–37.2; O2SAT 90–98
[2024-09-12] MEDS: HYDROmorphone 0.5 mg/0.5 ml inj IVP ×6 (01:03→23:43)
--- NOTE | 2024-09-12 02:38 | PM.GSPN ---
Subjective Subjective Date Seen: 09/12/24 Interval history: Ember has been having more pain overnight. She cannot get comfortable. The pain is localized in her right mid abdomen. She has had a fair amount of nausea overnight as well. Exam Narrative: Exam Narrative: General appearance: Alert, cooperative, and in no distress Eyes: PERRLA, eye lids clear, and sclera white HENT: NG in place. Brownish green drainage. 1350 out since yesterday Pulmonary: Breathing nonlabored on room air Cardiovascular:Regular rate Abdominal: Abdomen is flat. She is exquisitely tender on her right mid abdomen with guarding. Psychiatric: Alert, oriented, cooperative, normal affect. Const: Vital Signs, click to edit/add: Vital Signs - 24 hr 09/11/24 07:00 09/11/24 07:00 09/11/24 11:00 Temperature 97.9 F 98.6 F Pulse Rate [Right Pulse Oximeter] 82 71 Respiratory Rate 18 18 18 Blood Pressure [Le ft Arm] 127/75 122/60 Pulse Oximetry 96 96 95 Oxygen Delivery Me thod Room Air Room Air Room Air 09/11/24 15:00 09/11/24 15:00 09/11/24 15:00 Temperature 98.8 F Pulse Rate [Right Pulse Oximeter] 76 Respiratory Rate 18 18 18 Blood Pressure [Le ft Arm] 135/86 Pulse Oximetry 97 97 Oxygen Delivery Hi thod Room Air Room Air 09/11/24 19:00 09/11/24 23:00 09/11/24 23:00 Temperature 98.8 F 98.8 F Pulse Rate [Right Pulse Oximeter] 68 90 Respiratory Rate 16 16 16 Blood Pressure [Le ft Arm] 125/65 123/73 Pulse Oximetry 97 97 97 Oxygen Delivery Hi thod Room Air Room Air Room Air Labs/Imaging Imaging Imaging: X-ray of the abdomen from 09/11: FINDINGS: Similar dilated small bowel loops which appears stable to minimally increased measuring up to 3.4 centimeters no contrast is seen within the small bowel loops. NG tube in the stomach. Dictated by Cookie Maldonado MD @ 09/11/2024 8:45:41 PM Progress Note:A&P Assessment and plan (1) SBO (small bowel obstruction): Status: Acute (2) Abdominal pain, vomiting, and diarrhea: Status: Acute Plan The patient is a 69-year-old female with likely small bowel obstruction now with worsening pain. She has been getting pain medication fairly regularly the last 2 days, however last night she has felt much worse. White blood cell count is improved today however she does still have a left shift. Because of her increase in symptoms and persistent pain as well as the fact that Gastrografin did not go through on both attempts at Gastrografin challenge, I do think exploration is warranted. I discussed the risks with the patient including infection, bleeding, need for bowel resection, rare risk of ostomy as well as recovery. She is agreeable to proceed and we will plan on surgery as soon as the OR is available.
[2024-09-12] MEDS: ALPRAZolam 0.25 MG TABLET 0.5 MG PO ×2 (04:24→20:02)
[2024-09-12] MEDS: ONDANSETRON 2 MG/ML inj 4 MG IVP (05:15)
[2024-09-12 06:08] LABS: Basophils Absolute Auto 0.02 K/uL (0.00-0.30); Basophils Percent Auto 0.2 % (0.0-3.0); Eosinophils Absolute Auto 0.01 K/uL (0.00-0.50); Eosinophils Percent Auto 0.1 % (0.0-7.0); Hematocrit 43.9 % (33.0-51.0); Hemoglobin* 14.1 gm/dL (12.0-16.0); Immature Granulocytes Abs Auto 0.01 K/uL (0.00-0.30); Immature Granulocytes Pct Auto 0.1 %; Mean Corpuscular HGB Conc 32 gm/dL (32-36); Mean Corpuscular Hemoglobin 33 pg (26-34); Mean Corpuscular Volume 103 fL (80-100); Monocytes Percent Auto 9.4 % (0.0-11.0); Neutrophils Percent Auto 83.2 % (42.0-72.0); Platelet Count* 231 K/uL (140-440); RDW Coefficient of Variation % 13.7 % (11.5-15.5); Red Blood Count 4.25 m/uL (4.00-5.20); White Blood Count* 9.37 K/uL (4.50-11.00)
[2024-09-12 06:09] LABS: Slide Review Reflex No
[2024-09-12 06:18] LABS: Albumin* 4.2 g/dL (3.3-5.0); Chloride* 104 mmol/L (96-114); Potassium* 4.5 mmol/L (3.6-5.1); Sodium* 140 mmol/L (135-149)
[2024-09-12 06:21] LABS: Alanine Aminotransferase* 22 U/L (4-35); Alkaline Phosphatase* 56 U/L (40-150); Anion Gap 4 mEq/L (7-15); Aspartate Amino Transferase* 45 U/L (12-35); Bilirubin Total* 1.4 mg/dL (0.1-1.5); Blood Urea Nitrogen* 17 mg/dL (7-30); Calcium* 9.2 mg/dL (8.4-10.6); Carbon Dioxide* 32 mmol/L (20-32); Creatinine* 0.8 mg/dL (0.5-1.5); Est. Creatinine Clearance* 46.43; Estimated Glomerular Filt Rate 79 ml/min; Glucose* 106 mg/dL (60-115)
--- NOTE | 2024-09-12 06:39 | PC.NURSE ---
End of shift report [id number]: pleasant and cooperative with cares. Pain to abdomen increasing in intensity, patient reporting pain 6-8/10, dilaudid moderately effective and pain reduced to 3-4/10. Continues to report nausea, updated and new order for compazine PRN as patient was unable to have zofran due to timing. NG patent at 58cm in right nare, 550cc out throughout the night of green/brown liquid. Bowel sounds absent to upper quadrants, absent to right lower quadrant and hypoactive in left lower. Abdomen tender to touch. At 0345 patient placed call light on and was feeling shaky, diaphoretic and nauseated, she felt it was due to not taking her Alprazolam the last 2 evenings, she did not want to try the diazepam again as she said it made her feel funny. Call placed to [facility] doctor to get ok to use patients home supply of oral disintegrating tab of alprazolam. Verified tab of alprazolam with Cal Souza RN and administered one dose, bottle of medication will be sent to pharmacy for verification.
[2024-09-12] MEDS: SODIUM CHLORIDE 0.9 % (FLUSH) 10 ML SYRINGE 5 ML IVF ×2 (07:36→20:08)
[2024-09-12] MEDS: PROCHLORPERAZINE 5 MG/ML VIAL IV (07:36)
[2024-09-12] MEDS: LACTATED RINGERS 1000 ML 1,000 ML 75 ML IV ×2 (09:08→13:30)
--- NOTE | 2024-09-12 11:26 | PM.IMPN1 ---
Assessment and Plan Assessment and plan (1) SBO (small bowel obstruction): Problem comment: - h/o abdominal surgery in 2011 for colon cancer. Also had chemo at the time, no radiation. - Unclear if this SBO is due to adhesions or inflammation - consult general surgery (I spoke with Dr. Kaur, who will see the patient) - NPO - NGT to LIS - Maintenance IVF - 09/11 Repeating gastrografin study. Continue NGT to LIS afterward. Appreciate Dr. Kaur's recommendations. - 09/12 Persistent pain, nausea, no BM or flatus. No success with Gastrografin challenge x 2. Planning exploratory lap today. Status: Acute (2) Hypokalemia: Problem comment: - mild, asymptomatic - due to SBO, replace with IV KCl. - 09/11 resolved Status: Resolved (3) Elevated LFTs: Problem comment: - mild ALT elevation, stable - has h/o elevated LFTs several years ago when she used to have 1 glass wine per day while on methotrexate. When she completely abstained from alcohol, this resolved, and she has not had a drink since. Status: Acute (4) Insomnia: Problem comment: - takes 1mg Xanax nightly. Since she had O2 desat with IV dilaudid, and will be on low dose prn dilaudid for pain control, I have ordered half dose of Xanax prn nightly and will monitor continuous pulse ox - 09/11 continue Xanax 0.5 mg hs prn Status: Chronic (5) Immunosuppression: Problem comment: on methotrexate for RA Status: Chronic (6) Methotrexate, [employer], current use: Status: Chronic (7) Rheumatoid arthritis with positive rheumatoid factor: Problem comment: - chronic methotrexate injections Status: Chronic (8) Hypoxia: Problem comment: - 09/10 hypoxia with 0.5 mg dilaudid IV, but this has resolved and she has done well with dilaudid 0.2 mg dose. Monitor on continuous pulse ox - Tolerating dilaudid 0.5 mg now without hypoxia. Resolved. Status: Resolved Total Time Spent Total Time Spent: Today I spent 50 minutes seeing the patient, discussion with patient's , discussion with Dr. Kaur, reviewing Expanse and EPIC notes/diagnostics/labs, discussing the care plan with our care team that includes social work, PT/OT, pharmacy, RT, [facility] and documenting my impressions and plan in the medical record. Subjective Time Seen by Provider: 08:19 Date Seen: 09/12/24 Interval history: Persistent nausea and pain. No BM or flatus. Dr. Kaur saw patient earlier today; planning surgery today. Exam Narrative: Exam Narrative: General: No acute distress. Awake alert oriented. NGT present. Cardiovascular: Regular rate and rhythm. No murmurs, gallops, or rubs. Chest: No increased work of breathing. Clear to auscultation bilaterally. No crackles or wheezes. Abdomen: Bowel sounds hypoactive. Soft, nondistended, diffusely tender to palpation, especially to right of umbilicus. Const: Vital Signs, click to edit/add: Vital Signs - 24 hr 09/11/24 15:00 09/11/24 15:00 09/11/24 15:00 Temperature 98.8 F Pulse Rate [Right Pulse Oximeter] 76 Respiratory Rate 18 18 18 Blood Pressure [Le ft Arm] 135/86 Pulse Oximetry 97 97 [facility] 09/11/24 19:00 09/11/24 23:00 09/11/24 23:00 Temperature 98.8 F 98.8 F Pulse Rate [Right Pulse Oximeter] 68 90 Respiratory Rate 16 16 16 Blood Pressure [Le ft Arm] 125/65 123/73 Pulse Oximetry 97 97 97 [facility] Room Air Room Air 09/12/24 03:00 09/12/24 08:22 09/12/24 08:24 Temperature 98.5 F 99 F Pulse Rate [Right Pulse Oximeter] 71 82 Respiratory Rate 16 16 16 Blood Pressure [Le ft Arm] 127/77 120/70 Pulse Oximetry 96 93 93 [facility] Room Air Room Air 09/12/24 11:00 Temperature 98.7 F Pulse Rate [Right Pulse Oximeter] 64 Respiratory Rate 14 Blood Pressure [Le ft Arm] 118/69 Pulse Oximetry 98 [facility] Labs Labs: Laboratory Results - last 24 hr 09/12/24 05:48 WBC 9.37 RBC 4.25 Hgb 14.1 Hct 43.9 MCV 103 H MCH 33 MCHC 32 RDW Coeff of Elena 13.7 Plt Count 231 Neut % (Auto) 83.2 H Lymph % (Auto) 7.0 L [place] % (Auto) 9.4 Eos % (Auto) 0.1 Baso % (Auto) 0.2 Neut # (Auto) 7.80 H Lymph # (Auto) 0.70 L [place] # (Auto) 0.90 Eos # (Auto) 0.01 Baso # (Auto) 0.02 Abs Immat Gran (auto) 0.01 Imm/Tot Granulo (auto) 0.1 Sodium 140 Potassium 4.5 Chloride 104 Carbon Dioxide 32 Anion Gap 4 L BUN 17 Creatinine 0.8 Estimated Creat Clear 46.43 Estimated GFR 79 Glucose 106 Calcium 9.2 Total Bilirubin 1.4 AST 45 H ALT 22 Alkaline Phosphatase 56 Total Protein 7.0 Albumin 4.2 Ordering Physician: Belinda Cerrato M.D. Date of Service: 09/11/24 Procedure(s): XR abd 1v-gastro challenge Accession Number(s): [id number] cc: Belinda Cerrato M.D.; Carina Mckeon M.D.~ For Patients: As a result of the Cures Act, medical imaging exams and procedure reports are released immediately into your electronic medical record. You may view this report before your referring provider. If you have questions, please contact your health care provider. INDICATION: Eight hours after Gastrografin small-bowel obstruction TECHNIQUE: Two view abdomen. Comparison x-rays 09/11/2024 FINDINGS: Similar dilated small bowel loops which appears stable to minimally increased measuring up to 3.4 centimeters no contrast is seen within the small bowel loops. NG tube in the stomach. Dictated by Cookie Maldonado MD @ 09/11/2024 8:45:41 PM (Electronically Signed)
[2024-09-12] MEDS: PIPERACILLIN/TAZOBACTAM 3.375 GM in 0.9 % SODIUM CHLORIDE Mini-bag 100 ML IVPB (12:42)
--- NOTE | 2024-09-12 12:58 | P.NB_ITS ---
Nerve Block Nerve Block Time Seen by Provider: 12:40 Date Seen: 09/12/24 Type of block requested by surgeon for post-operative analgesia: TAP Side: bilateral Time out performed: Yes Verification of patient name: Yes Verification of date of : Yes Site marking: site marked Name of person performing procedure: Rodolfo Continuous monitoring Was continuous monitoring of O2 sat, B/P, property assessment monitor, recorded every 15 minutes?: Yes Procedure Checklist: sterile prep, needles and gloves Ultrasound guided. Images saved: Yes Medications given in 5ml increments after negative aspiration: Marcaine %: 0.25 mL: 30 Needle gauge: 20 and Exparel mL: 10 Patient tolerated procedure well: Yes Additional comments: Needle noted between internal oblique and transversus abdominus. Local spread visualized Block Charges Block Charge (with Pro Fee): TAP Bilateral Use of Ultrasound Machine for Block: Yes- US Guidance/pain block
--- NOTE | 2024-09-12 12:59 | P.ANES_ITS ---
Anesthesia Charges Start Date/Time Anesthesia Start Date: 09/12/24 Anesthesia Start Time: 12:29 Stop Date/Time Anesthesia Stop Date: 09/12/24 Anesthesia Stop Time: 13:38 Summary Extremes of Age - Over 70 or under 1: MDA Coding CPT Codes CPT Codes: ANESTH SURG LOWER ABDOMEN - 43067 ([id number]) P2 - PATIENT W/MILD SYST DISEASE, QK - SUPERINTENDENT MEASUREMENT 2-4 CNCRNT ANES PROC, QX - CCIE SVC W/ MD MED DIRECTION Additional Codes: Summary - Extremes of Age - Over 70 or under 1: MDA ([id number])
--- NOTE | 2024-09-12 12:59 | W.ANESCHARGE ---
Anesthesia Charges Start Date/Time Anesthesia Start Date: 09/12/24 Anesthesia Start Time: 12:29 Stop Date/Time Anesthesia Stop Date: 09/12/24 Anesthesia Stop Time: 13:38 Summary Extremes of Age - Over 70 or under 1: MDA Coding CPT Codes CPT Codes: ANESTH SURG LOWER ABDOMEN - 50791 ([id number]) P2 - PATIENT W/MILD SYST DISEASE, QK - MAT LINKER 2-4 CNCRNT ANES PROC, QX - SALES MERCHANDISER SVC W/ MD MED DIRECTION Additional Codes: Summary - Extremes of Age - Over 70 or under 1: MDA ([id number])
--- NOTE | 2024-09-12 13:38 | P.ANES_ITS ---
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
--- NOTE | 2024-09-12 13:38 | W.ANESCHARGE ---
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
--- NOTE | 2024-09-12 13:42 | PM.GSPRC ---
Operative Note Date of procedure: 09/12/24 Pre-op diagnosis: Small-bowel obstruction Post-op diagnosis: Same Type of Procedure: Exploratory laparoscopy and lysis of adhesions Indications: The patient is a 69-year-old female who presented to the emergency department with severe abdominal pain and nausea as well as diarrhea. CT scan showed concern for possible developing bowel obstruction. An NG tube was placed and she was admitted to the hospital. She subsequently had cessation of bowel function and ongoing pain and nausea. Gastrografin challenge was attempted twice, however the Gastrografin did not stay in her bowel and was suctioned out via her NG tube as she was unable to tolerate prolonged clamping trials. On hospital day 3, she was having acutely worsening pain and therefore I recommended exploration. She agreed to proceed and signed informed consent. Procedure Description: After discussing the risks and benefits of the procedure, the patient signed informed consent.? The operative site was marked and the patient was brought to the operating room and placed on the operating table in supine position.? Care was taken to pad the patient's pressure points.?? The patient was then intubated/given sedation by anesthesia.? A tap block was then performed. Please see anesthesia's note.? The operative site was then prepped and draped in the usual sterile fashion.? A time-out was then performed. Entrance to the abdomen was gained via Visiport technique in the left upper quadrant. The abdominal wall layers were visualized as I passed through. The abdomen was briefly surveyed for signs of injury. There was none. Immediately, the bowel did not appear to be markedly distended. There was a small amount of serous fluid noted in the pelvis. An additional 5 mm port was placed in midline through her prior surgical scar. This was done under direct vision. I then placed the patient in Trendelenburg position with the right side up. I lifted her omentum cephalad. I then identified what appeared to be an adhesion of the omentum in the area of the prior anastomosis. This appeared to be tethering the small bowel to the retroperitoneum. I placed an additional 5 mm port below the umbilicus in the midline. Then, I was able to better explore the area. There was a tongue of omentum which was adherent to the retroperitoneum and through this the small bowel had passed, creating an internal hernia. I attempted to 1st reduce the bowel, however a large amount of bowel had herniated through. I then bluntly divided the adhesion. There was no bleeding noted. There was an additional adhesion between the anastomosis and the omentum also creating a potential internal hernia. This was also lysed bluntly. I then examined the transverse colon, running retrograde until the anastomosis was encountered. This appeared widely patent and without signs of abnormality. The small bowel was then run retrograde. There was an adhesion of the small bowel proximal to the anastomosis in the pelvis, however this was not obstructive. The small bowel appeared widely patent here. I continued to run the bowel retrograde. Distally it was normal and nondilated. Proximally the small bowel was somewhat more dilated. There was a small amount of hemorrhagic appearing serosa in the midportion the bowel, however this was very mild. There was some hemorrhagic staining on the omentum of the small bowel which likely indicated the point of obstruction. The small bowel did demonstrate any narrowing, stricture or inflammation. All of the small bowel appeared viable. The bowel was run to the ligament of Treitz. After confirming the bowel was widely free and there was no further obstruction, I then desufflated the abdomen and removed the ports. Skin was closed with 4-0 Monocryl subcuticular suture. Steri-Strips were then applied. ? The patient was then woken and transported to the recovery area in stable condition. ? The patient tolerated the procedure well. Findings: 1. Adhesion from omentum to retroperitoneum causing an internal hernia of the small bowel. 2. Mild proximal bowel dilation, however all bowel appeared viable. Anesthesia: GETA Surgeon: Dayan Kaur MD Estimated blood loss (mL): 1 Condition: stable Disposition: PACU
--- NOTE | 2024-09-12 15:14 | PC.NURSE ---
Shift Summary: Patient pleasant and cooperative. Up with SBA, NG clamped post-op, tolerating ice chips at this time, denies nausea. Denies pain post-op, Ice pack over incision sites. x3 lap sites, C/D/I. Vitals stable and WNL. Per MD the NG can come out this evening @ 1800 if patient is without nausea/vomiting.
--- NOTE | 2024-09-12 19:01 | PC.NURSE ---
NG dc'd without difficulty.
--- NOTE | 2024-09-12 23:32 | PC.NURSE ---
Shift note: Pt denies nausea since NG removal. Denies pain. 3 lap sites intact with steri strips and scant amount of bloody drainage. Bowel sounds absent. Moving independently throughout her room and walked the unit with her this evening. VS WNL and LS COA. Tolerating sips and chips.
[2024-09-12] MEDS: LACTATED RINGERS 1000 ML 1,000 ML 125 ML IV (23:43)
[2024-09-13] MEDS: BENZOCAINE/MENTHOL 1 EACH LOZENGE MUCOUS MEM (02:17)
[2024-09-13 03:00] VITALS: BP 116/80; PULSE 57; RESP 18; TEMP 36.4; O2SAT 97
--- NOTE | 2024-09-13 06:02 | PC.NURSE ---
9620-1529: Pt alert, oriented and vitally stable. Pt states flatus, bowel sounds hypoactive. Pt stated pain rated 8/10, prn dilaudid given, pt stated improvement. 3 lap sites, steri strips C/D/I, scant dried blood. Active ice applied. Pt in bed, appears to be resting, call light within reach.?
[2024-09-13 06:59] LABS: Basophils Absolute Auto 0.04 K/uL (0.00-0.30); Basophils Percent Auto 0.4 % (0.0-3.0); Eosinophils Absolute Auto 0.15 K/uL (0.00-0.50); Eosinophils Percent Auto 1.5 % (0.0-7.0); Immature Granulocytes Abs Auto 0.02 K/uL (0.00-0.30); Immature Granulocytes Pct Auto 0.2 %; Lymphocytes Percent Auto 17.2 % (20-44); Mean Corpuscular HGB Conc 33 gm/dL (32-36); Mean Corpuscular Hemoglobin 33 pg (26-34); Mean Corpuscular Volume 102 fL (80-100); Monocytes Percent Auto 11.3 % (0.0-11.0); Neutrophils Absolute Auto 6.93 K/uL (1.7-7.0); Neutrophils Percent Auto 69.4 % (42.0-72.0); Platelet Count* 241 K/uL (140-440); RDW Coefficient of Variation % 13.3 % (11.5-15.5); Red Blood Count 4.21 m/uL (4.00-5.20); White Blood Count* 9.99 K/uL (4.50-11.00)
[2024-09-13 07:00] VITALS: BP 122/73; PULSE 56; RESP 16; TEMP 37; O2SAT 98
[2024-09-13 07:11] LABS: Chloride* 102 mmol/L (96-114); Potassium* 3.7 mmol/L (3.6-5.1); Sodium* 139 mmol/L (135-149)
[2024-09-13 07:14] LABS: Anion Gap 8 mEq/L (7-15); Blood Urea Nitrogen* 17 mg/dL (7-30); Carbon Dioxide* 29 mmol/L (20-32); Creatinine* 0.8 mg/dL (0.5-1.5); Est. Creatinine Clearance* 44.56; Estimated Glomerular Filt Rate 79 ml/min
[2024-09-13 07:15] LABS: Calcium* 8.6 mg/dL (8.4-10.6); Glucose* 80 mg/dL (60-115)
[2024-09-13 07:19] LABS: Slide Review Reflex No
[2024-09-13] MEDS: SODIUM CHLORIDE 0.9 % (FLUSH) 10 ML SYRINGE 5 ML IVF (07:54)
[2024-09-13] MEDS: ACETAMINOPHEN 325 MG TABLET 650 MG PO (10:31)
[2024-09-13 11:00] VITALS: BP 121/71; PULSE 63; RESP 16; TEMP 36.8; O2SAT 96
[2024-09-13] MEDS: SCOPOLAMINE 1 MG/3 DAY PATCH 1 PATCH TRANSDERMA (11:37)
--- NOTE | 2024-09-13 12:34 | PM.DS1 ---
DS: Providers Provider Date Seen: 09/13/24 Date of admission: 09/10/24 09:44 Primary care physician: Carina Mckeon MD Admitting Clinician: Fabiola Yadav MD Consults: 09/10/24 10:26 Consult to Physician [CONS] Routine Comment: Consulting Provider: Dayan Kaur Has provider been notified: Yes Attending Physician on discharge: Belinda Cerrato MD DS: Summary Hospital Course Hospital Course: The patient is a 69-year-old female who presented to the emergency department with severe abdominal pain, vomiting and diarrhea. CT scan appeared consistent with partial bowel obstruction. An NG tube was placed and she was admitted the hospital. Gastrografin challenge was attempted x2, however the contrast failed to pass into her intestines as she had too much nausea with each clamping trial. On hospital day 3, her pain had acutely worsened and therefore I recommended proceeding to the operating room for exploration. She underwent exploratory laparoscopy. She did have 1 adhesion from her prior colectomy that had caused an internal hernia. This was lysed. She did not have significant dilation of her bowel at this point intraoperatively. On postop day 1 she was passing gas and had minimal pain. She was deemed safe for discharge home after tolerating a regular diet. Time Spent with Patient Time attestation: Total time spent providing and/or coordinating discharge services: Exam Narrative: Exam Narrative: General appearance: Alert, cooperative, and in no distress Eyes: PERRLA, eye lids clear, and sclera white HENT Head: Normocephalic Ears: External ears normal Pulmonary: Breathing nonlabored on room air Cardiovascular Heart: Regular rate Extremities: warm and well perfused Gastrointestinal Abdominal: Soft, appropriately tender. Incisions are clean and dry. No erythema. Musculoskeletal: Extremities: Upper: Both upper extremities have normal joint range of motion and intact strength. Lower: Both lower extremities have normal joint range of motion and intact strength. Skin: Normal skin color, texture, and turgor. Neurologic: No focal deficits Psychiatric: Alert, oriented, cooperative, normal affect. Const: Vital Signs, click to edit/add: Vital Signs - 24 hr 09/12/24 13:35 09/12/24 13:40 09/12/24 13:45 Temperature 97.8 F Pulse Rate 68 72 77 Pulse Rate [Right Pulse Oximeter] Respiratory Rate 14 14 16 Blood Pressure 120/85 127/75 129/80 Blood Pressure [Le ft Arm] Blood Pressure [Ri ght Arm] Pulse Oximetry 94 90 93 Oxygen Delivery Me thod Room Air Room Air Room Air Oxygen Flow Rate 0 0 0 09/12/24 13:50 09/12/24 13:55 09/12/24 14:00 Temperature Pulse Rate 76 64 72 Pulse Rate [Right Pulse Oximeter] Respiratory Rate 16 16 16 Blood Pressure 116/72 122/76 125/75 Blood Pressure [Le ft Arm] Blood Pressure [Ri ght Arm] Pulse Oximetry 94 92 95 Oxygen Delivery Me thod Room Air Room Air Room Air Oxygen Flow Rate 0 0 0 09/12/24 14:07 09/12/24 14:15 09/12/24 14:30 Temperature 98.4 F 98.4 F 98.4 F Pulse Rate 72 71 80 Pulse Rate [Right Pulse Oximeter] Respiratory Rate 18 18 18 Blood Pressure 127/75 125/71 126/85 Blood Pressure [Le ft Arm] Blood Pressure [Ri ght Arm] Pulse Oximetry 91 94 92 Oxygen Delivery Me thod Room Air Room Air Room Air Oxygen Flow Rate 09/12/24 14:45 09/12/24 15:00 09/12/24 15:00 Temperature 98.2 F Pulse Rate 81 80 Pulse Rate [Right Pulse Oximeter] Respiratory Rate 18 18 18 Blood Pressure 121/77 123/78 Blood Pressure [Le ft Arm] Blood Pressure [Ri ght Arm] Pulse Oximetry 90 90 95 Oxygen Delivery Me thod Room Air Room Air Room Air Oxygen Flow Rate 09/12/24 15:00 09/12/24 15:00 09/12/24 16:00 Temperature 98.1 F 98.2 F Pulse Rate 77 75 Pulse Rate [Right Pulse Oximeter] 77 Respiratory Rate 18 18 18 Blood Pressure 131/78 127/64 Blood Pressure [Le ft Arm] Blood Pressure [Ri ght Arm] Pulse Oximetry 95 91 Oxygen Delivery Me thod Room Air Room Air Oxygen Flow Rate 0 0 09/12/24 17:00 09/12/24 18:00 09/12/24 19:19 Temperature 98.5 F Pulse Rate 74 74 71 Pulse Rate [Right Pulse Oximeter] Respiratory Rate 18 18 18 Blood Pressure 120/71 131/66 114/67 Blood Pressure [Le ft Arm] Blood Pressure [Ri ght Arm] Pulse Oximetry 95 96 95 Oxygen Delivery Me thod Room Air Room Air Room Air Oxygen Flow Rate 0 0 0 09/12/24 20:00 09/12/24 23:00 09/12/24 23:00 Temperature 98.2 F 97.6 F Pulse Rate 67 Pulse Rate [Right Pulse Oximeter] 71 Respiratory Rate 18 18 18 Blood Pressure 107/59 L Blood Pressure [Le ft Arm] 117/68 Blood Pressure [Ri ght Arm] Pulse Oximetry 97 97 97 Oxygen Delivery Ms thod Room Air Room Air Room Air Oxygen Flow Rate 0 0 09/12/24 23:00 09/13/24 03:00 09/13/24 07:00 Temperature 97.6 F 98.6 F Pulse Rate Pulse Rate [Right Pulse Oximeter] 71 57 L 56 L Respiratory Rate 18 18 16 Blood Pressure Blood Pressure [Le ft Arm] 116/80 Blood Pressure [Ri ght Arm] 122/73 Pulse Oximetry 97 98 Oxygen Delivery Ms thod Room Air Room Air Oxygen Flow Rate 0 09/13/24 07:00 09/13/24 07:00 09/13/24 11:00 Temperature 98.2 F Pulse Rate Pulse Rate [Right Pulse Oximeter] 56 L 63 Respiratory Rate 16 16 16 Blood Pressure Blood Pressure [Le ft Arm] Blood Pressure [Ri ght Arm] 121/71 Pulse Oximetry 98 96 Oxygen Delivery Me thod Room Air Room Air Oxygen Flow Rate DS: Data Data Completed and Pending Labs on day of discharge: Labs from last 24 hours 09/13/24 05:59 WBC 9.99 RBC 4.21 Hgb 14.0 Hct 43.0 MCV 102 H MCH 33 MCHC 33 RDW Coeff of Elena 13.3 Plt Count 241 Neut % (Auto) 69.4 Lymph % (Auto) 17.2 L Hamilton % (Auto) 11.3 H Eos % (Auto) 1.5 Baso % (Auto) 0.4 Neut # (Auto) 6.93 Lymph # (Auto) 1.70 Hamilton # (Auto) 1.10 H Eos # (Auto) 0.15 Baso # (Auto) 0.04 Abs Immat Gran (auto) 0.02 Imm/Tot Granulo (auto) 0.2 Sodium 139 Potassium 3.7 Chloride 102 Carbon Dioxide 29 Anion Gap 8 BUN 17 Creatinine 0.8 Estimated Creat Clear 44.56 Estimated GFR 79 Glucose 80 Calcium 8.6 Discharge Plan Discharge Disposition: Home, Self-Care Date of Admission: 09/10/24 09:44 Consulting Providers: Dayan Kaur Primary Care Provider: Carina Mckeon Condition: Stable Anticipated Discharge Date/Time: 09/13/24 14:00 Discharge Medications: New hydrocodone-acetaminophen 5-325 mg tablet 1 - 2 tab PO Q6H PRN (Reason: Pain) Qty: 10 0RF Rx Instructions: 1 - 2 tab orally as needed Continued alprazolam 0.5 mg tablet 0.5 - 1 mg PO HS PRN (Reason: insomnia) estradiol 0.01 % (0.1 mg/gram) cream 1 g vaginal Q7D methotrexate sodium 25 mg/mL solution 15 mg subcut Q7D folic acid 1 mg tablet 1 mg PO DAILY Discharge Orders: Discharge Order (Routine); Ordered 09/13/24 Ordered By: Dayan Kaur Consulting provider completed their portion of the discharge: Yes Patient Education: Hydrocodone/Acetaminophen (By mouth), Exploratory Laparoscopy (GEN), Lysis of Abdominal Adhesions (DC) Additional Instructions: Wound care: Your sutures are under the skin and will dissolve over time. Leave steri strips (white bandages) over incisions until they fall off (or remove after 7 days). OK to shower tomorrow but avoid bathing, soaking or swimming for 2 weeks. Pat the incisions dry. No need to wash or scrub the area. Apply ice to the area as needed for swelling. It is also OK to use a heating pad if this provides more comfort to you. Pain control: You were prescribed a pain medication. This medication contains acetaminophen (Tylenol). If you are taking your prescribed pain pills 4 times daily, do not take additional acetaminophen. As your pain improves, you can try taking acetaminophen instead of the prescribed pain pill. It is ok to take Ibuprofen or Naproxen (per directions on packaging). This medication helps with inflammation and swelling. Take an [id number] stool softener while you are taking prescribed pain medications to help alleviate constipation. I recommend Senna and/or Colace. Take as directed on package. If you have not had a bowel movement in 3 days, try taking Miralax as directed on the package. All of these are available over the counter. Follow-up Follow up with Dr. Kaur in 2-3 weeks at [facility] Please call if you are experiencing severe pain, nausea, vomiting, difficulty urinating, fever or have not had bowel movement in 4 days after surgery. Activity Level: Activity as Tolerated and No strenuous activity Activity Detail: No lifting more than 20 lb for 2 weeks. Discharge Diet: Regular Follow Up Appointments: Dayan Kaur MD [Staff Physician] - 10/02/24 1:45 pm ([facility]) Carina Mckeon MD [Primary Care Provider] - Forms: [employer] Info Instructions
--- NOTE | 2024-09-13 14:12 | PC.NURSE ---
Discharge note: VSS. Afebrile. Pt took a shower this shift. Tolerating regular diet. Pt ambulates independently. IV removed and tip intact. Pt discharged home at 1402 with . Discharge education and patient belongings gone through and signed.
== END 2024-09-13 14:02 | disposition home or self-care (01) | DRG 336 ==
LOC: ED 07:50 → MEDSURG 08:50
PROVIDERS: Surgery; Admitting Provider Family Medicine; Emergency Provider Family Medicine; PCP Family Medicine; Visit Provider Family Medicine
PROC: 0DN80ZZ Release Small Intestine, Open Approach (ICD-10-PCS; CPT 49000; principal; 2024-09-12 12:15)
DX: K56.51 Intestinal adhesions [bands], with partial obstruction (principal); D84.821 Immunodeficiency due to drugs; M05.9 Rheumatoid arthritis with rheumatoid factor, unspecified; Z79.631 Long term (current) use of antimetabolite agent; G89.18 Other acute postprocedural pain; R09.02 Hypoxemia; E87.6 Hypokalemia; G47.00 Insomnia, unspecified; R10.9 Unspecified abdominal pain; R11.10 Vomiting, unspecified; R19.7 Diarrhea, unspecified; R74.8 Abnormal levels of other serum enzymes; Z85.038 Personal history of other malignant neoplasm of large intestine; Z85.828 Personal history of other malignant neoplasm of skin
CPT/HCPCS: 00840; 36415; 64488; 71045; 74018; 74177; 76942; 80048; 80053; 80076; 81001; 83605; 83690; 83735; 85025; 86140; 93005; 94761; 99100; 99285; A9270; J0665; J0666; J0780; J1100; J1171; J1790; J2371; J2405; J2543; J2704; J3360; J3475; J3480; J3490; J7120; Q9967

== ENCOUNTER 2025-02-27 07:59 | Outpatient (CLI) | payer MEDICARE, SELFPAY ==
--- NOTE | 2025-02-27 06:51 | P.PCN_ITS ---
Procedure Note Time Seen by Provider: 08:15 Date Seen: 02/27/25 Provider Contact Time: 09:00 Date of procedure: 02/27/25 Will [facility] bill your pro fee for this procedure?: Yes Procedure: CRYONEUROLYSIS TREATMENT REPORT REFERRING PROVIDER: Guy Thompson TREATMENT PROVIDER: Juan Reynolds PREOPERATIVE DIAGNOSIS: Left knee osteoarthritis POSTOPERATIVE DIAGNOSIS: Left knee osteoarthritis? PROCEDURE: Cryoneurolysis of Multiple Sensory Nerves of the Knee ANESTHESIA: Local INDICATIONS: The patient is a very pleasant very pleasant 69-year-old female patient with primary osteoarthritis involving the left knee who presents today for cryoneurolysis of multiple sensory nerves to the knee for severe knee pain.?Patient medical history was reviewed. The risks, benefits, treatment alternatives, and complications were discussed with the patient, including but not limited to bleeding, infection, nerve or tissue damage.?Informed consent was obtained. ? PRE-TREATMENT MOTOR ASSESSMENT/PAIN SCORE: Patient was able to demonstrate i ntact gross motor function with plantarflexion, dorsiflexion, adduction, abduction, hip flexion, and extension of the lower extremity.?Pre-treatment pain score of 5 out of 10 in the left knee. DESCRIPTION OF PROCEDURE: After obtaining informed consent, the patient was brought back to the treatment room and positioned supine on the table.?The left lower extremity was prepped with Chlorhexadine.?We began the procedure by performing our procedural pause.?Once this was completed and verified to be accurate, I began the procedure by identifying the nerves with the use of beds efrain ultrasound.?After the nerves were identified, the skin was marked and, using 1% lidocaine plain, the area of the nerves were anesthetized. ? After the anesthetic was administered, the Smart Tip 2190 cryoneurolysis needle was inserted into the treatment sites using ultrasound guidance.?Treatment was then initiated on the left lower extremity with the following nerves treated: Superior, superior medial, superior lateral, inferior medial genicular nerves and the infrapatellar branch of the saphenous nerve. At the termination of the treatment, the cryoneurolysis needle was removed with the patient's skin cleansed and Band-Aid and compression dressing applied. Patient tolerated the procedure without any incident or concern.? Patient was then instructed to stand, mobilize the joint, and was examined to ensure gross motor skills were intact. COMPLICATIONS: None POST-TREATMENT PAIN SCORE: 0 out of 10 in the Left knee DISPOSITION: Discharge instructions were given to the patient with education on the post-procedure expectations. Patient was instructed to call the Ortho clinic with any post-procedure concerns or questions.
[2025-02-27 08:16] VITALS: BP 108/66; PULSE 80; RESP 16; TEMP 36.6; O2SAT 98
[2025-02-27 09:12] VITALS: BP 144/82; PULSE 76; RESP 16; O2SAT 98
== END 2025-02-27 09:14 | disposition home or self-care (01) ==
LOC: OP CLINIC 08:00
PROVIDERS: PCP Family Medicine; Visit Provider Nurse Anesthetist, Certified Registered
DX: M17.12 Unilateral primary osteoarthritis, left knee (principal)
CPT/HCPCS: 64640; 76942; C9809

== ENCOUNTER 2025-03-11 06:58 | Day surgery (SDC) | payer MEDICARE, SELFPAY ==
[2025-03-11] VITALS (15 sets, daily range): BP systolic 90–135; BP diastolic 58–83; PULSE 64–90; RESP 14–76; TEMP 36.4–36.9; O2SAT 93–98; BMI 21.6
--- NOTE | 2025-03-11 07:16 | W.PM.H&PU ---
History & Physical Update History & Physical Update H&P Reviewed and patient assessed: No changes noted
[2025-03-11] MEDS: LACTATED RINGERS 1000 ML 1,000 ML 100 ML IV (07:53)
[2025-03-11] MEDS: SODIUM CHLORIDE 0.9 % (FLUSH) 10 ML SYRINGE IVF (07:53)
[2025-03-11] MEDS: OXYCODONE (CR) 10 MG TAB.ER.12H PO (08:00)
[2025-03-11] MEDS: ACETAMINOPHEN 500 MG TABLET 1000 MG PO (08:00)
[2025-03-11] MEDS: MIDAZOLAM HCL 1 MG/ML inj IVP (08:27)
--- NOTE | 2025-03-11 08:30 | SUR.PREOP ---
TIME?OUT:?left knee, 0825 PT/RN/MDA?VERIFICATION?OF?SURGICAL?SITE,?PROCEDURE,?AND?CONSENT OBTAINED?PRIOR?TO?INVASIVE?PROCEDURE.
[2025-03-11] MEDS: TRANEXAMIC ACID 100 MG/ML INJ 1000 MG IV (08:50)
--- NOTE | 2025-03-11 09:11 | P.ANES_ITS ---
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
--- NOTE | 2025-03-11 09:11 | W.ANESCHARGE ---
Anesthesia Charges Start Date/Time Anesthesia Start Date: 03/11/25 Anesthesia Start Time: 08:33 Stop Date/Time Anesthesia Stop Date: 03/11/25 Anesthesia Stop Time: 10:41 Summary Extremes of Age - Over 70 or under 1: VOCATIONAL COUNSELOR Coding CPT Codes CPT Codes: ANESTH KNEE ARTHROPLASTY - 53224 ([id number]) P2 - PATIENT W/MILD SYST DISEASE, QK - OPERATION MANAGER 2-4 CNCRNT ANES PROC, QX - VOCATIONAL COUNSELOR SVC W/ MD MED DIRECTION Additional Codes: Summary - Extremes of Age - Over 70 or under 1: VOCATIONAL COUNSELOR ([id number])
--- NOTE | 2025-03-11 10:08 | PM.ORPRC ---
Procedure Note Date of procedure: 03/11/25 Procedure: PREOPERATIVE DIAGNOSIS: 1. Left knee osteoarthritis, primary, severe POSTOPERATIVE DIAGNOSIS: 1. Left knee osteoarthritis, primary, severe PROCEDURE: 1. Left total knee arthroplasty - subvastus SURGEON: Guy Thompson MD. LEAD MOBILE DEVELOPER: RENZO Day - Of note, a skilled aquatics assistant department head was critical for this case to aid in patient positioning, tissue retraction, limb manipulation/positioning, and closure. ANESTHESIA: Spinal anesthetic EBL: 50ml IMPLANTS: DePuy J&J all cemented TKA - Attune PS femur size 5 narrow Size 4 tibia 5 mm poly spacer 35 mm patella TOURNIQUET: 22 minutes at 250 torr COMPLICATIONS: None evident INDICATIONS: The patient is a pleasant 69-year-old female who has experienced severe left knee pain and difficulty bearing weight. Workup included x-rays which revealed severe osteoarthrosis in the knee. Given the deformity, the dysfunction, and the pain, as well as the failure of nonoperative management, recommendation was made for surgery. FINDINGS: Full-thickness chondral loss diffusely throughout the lateral compartment and to a lesser degree patellofemoral and medial compartments. Moderate effusion upon entering the joint. Slightly softer bone expected and therefore components were cemented. DESCRIPTION OF PROCEDURE: Following a thorough discussion of risks, benefits, and alternatives consent was obtained and the left knee was marked. The patient was brought to the operating room and placed supine on the operating table. Induction of anesthesia was undertaken. 1 g IV Ancef and 1 g tranexamic acid was administered within 1 hr of incision preoperatively. Proper time-out was performed identifying proper patient, site, procedure. The operative extremity was prepped and draped in the appropriate sterile fashion using ChloraPrep after the patient was positioned supine with all bony prominences well padded. A longitudinal, anterior, midline skin incision was made starting approximately 3cm proximal to the superior pole of the patella and advanced distal to the tibial tubercle. A subvastus approach was utilized. A medial subperiosteal sleeve was created with knife, fu elevator and curved osteotome. The retropatellar fatpad was resected and the synovium in the suprapatellar pouch excised to visualize the anterior femoral cortex. Femoral preparation was performed via an intramedullary guide. Step drill allowed access into the femoral canal. The distal cutting guide was placed with 6? of valgus and 11 mm cut on the distal femur. Femur was sized using a posterior referencing guide in 5? of external rotation after cross referencing with trans-epicondylar axis and Iain's line. This found have a best fit with the sizing noted above. The 4 in 1 cutting block was then placed, and the distal femur shaped accordingly. The box cut was then created and the trial implant inserted to confirm appropriate fit. We turned our attention to the proximal tibia. Extramedullary guide was utilized for cutting with the goal of being 90 degree cut from the mechanical axis of the tibia in the varus/valgus plane utilizing tibial crest as the primary alignment. Initially a 4 mm resection was performed from the medial tibial plateau. Ultimately, balancing was achieved in both flexion and extension in both varus and valgus. The knee was able to achieve full extension as well comfortably. The patella was initially measured and found have a thickness of 23 mm. It was resected back to approximately 13.5 mm. It was sized to be a best fit with as noted above. This was drilled, trial placed. All trials were placed and found to have an excellent stability and balance. At this stage, trial implants were removed, the knee was thoroughly irrigated with normal saline, and the cement was mixed. After irrigation, the knee was thoroughly dried, and cement placed, with the real tibial and femoral implants placed along with the patella. Trial poly spacer was placed and confirmed to have excellent range of motion and full extension, and the real poly spacer opened and inserted. All extra cement was removed, and a 3 min Betadine soak performed. Finally, a final irrigation round with normal saline was performed. Closure performed with 0 PDS and #0 Stratafix for the quad tendon/retinaculum. 2-0 Vicryl/Stratafix for the subcutaneous and 4-0 Monocryl for subcuticular closure. Dressings were applied and the patient was awoken from anesthesia after the tourniquet deflated and transferred the PACU in stable condition. A skilled aquatics assistant department head was critical for this case to aid in patient positioning, tissue retraction, bone exposure, limb manipulation/positioning, patient safety, and closure. PLAN: 1. Weight bear as tolerated operative extremity. 2. 23 hr perioperative antibiotics. 3. Ice. 4. PT/OT consults for ambulation assistance/mobility education. 5. Social work consult for discharge planning. 6. DVT prophylaxis with at SCDs and aspirin twice daily.
--- NOTE | 2025-03-11 10:19 | P.NB_ITS ---
Nerve Block Nerve Block Time Seen by Provider: 08:30 Date Seen: 03/11/25 Type of block requested by surgeon for post-operative analgesia: adductor canal Side: left Time out performed: Yes Verification of patient name: Yes Verification of date of : Yes Site marking: site marked Name of person performing procedure: Rodolfo Continuous monitoring Was continuous monitoring of O2 sat, B/P, quality assurance monitor final, recorded every 15 minutes?: Yes Procedure Checklist: sterile prep, needles and gloves Ultrasound guided. Images saved: Yes Medications given in 5ml increments after negative aspiration: Marcaine %: 0.25 mL: 15 Needle gauge: 20 Precedex (mcg): 25 Patient tolerated procedure well: Yes Block Charges Block Charge (with Pro Fee): Femoral Nerve Use of Ultrasound Machine for Block: Yes- US Guidance/pain block
--- NOTE | 2025-03-11 10:19 | P.NB_ITS ---
Nerve Block Nerve Block Time Seen by Provider: 08:30 Date Seen: 03/11/25 Type of block requested by surgeon for post-operative analgesia: geniculars Side: left Time out performed: Yes Verification of patient name: Yes Verification of date of : Yes Site marking: site marked Name of person performing procedure: Rodolfo Continuous monitoring Was continuous monitoring of O2 sat, B/P, nuclear monitoring technician, recorded every 15 minutes?: Yes Procedure Checklist: sterile prep, needles and gloves Ultrasound guided. Images saved: Yes Medications given in 5ml increments after negative aspiration: Marcaine %: 0.25 mL: 9 Needle gauge: 25 Patient tolerated procedure well: Yes Block Charges Block Charge (with Pro Fee): Genicular Nerve Block
--- NOTE | 2025-03-11 10:20 | P.ANES_ITS ---
Anesthesia Charges Start Date/Time Anesthesia Start Date: 03/11/25 Anesthesia Start Time: 08:33 Stop Date/Time Anesthesia Stop Date: 03/11/25 Anesthesia Stop Time: 10:41 Summary Emergency: MDA Extremes of Age - Over 70 or under 1: SUPERVISOR POST WAVE Coding CPT Codes CPT Codes: ANESTH KNEE ARTHROPLASTY - 61672 ([id number]) P2 - PATIENT W/MILD SYST DISEASE, QK - ONYX CHIP TERRAZZO WORKER 2-4 CNCRNT ANES PROC, QX - SUPERVISOR POST WAVE SVC W/ MD MED DIRECTION Additional Codes: Summary - Emergency: MDA ([id number]) Summary - Extremes of Age - Over 70 or under 1: SUPERVISOR POST WAVE ([id number])
--- NOTE | 2025-03-11 10:20 | W.ANESCHARGE ---
Anesthesia Charges Start Date/Time Anesthesia Start Date: 03/11/25 Anesthesia Start Time: 08:33 Stop Date/Time Anesthesia Stop Date: 03/11/25 Anesthesia Stop Time: 10:41 Summary Emergency: MDA Extremes of Age - Over 70 or under 1: PROGRAM MGR Coding CPT Codes CPT Codes: ANESTH KNEE ARTHROPLASTY - 21961 ([id number]) P2 - PATIENT W/MILD SYST DISEASE, QK - PARCEL POST CARRIER 2-4 CNCRNT ANES PROC, QX - PROGRAM MGR SVC W/ MD MED DIRECTION Additional Codes: Summary - Emergency: MDA ([id number]) Summary - Extremes of Age - Over 70 or under 1: PROGRAM MGR ([id number])
--- NOTE | 2025-03-11 10:22 | CRLHL7_ITS ---
For Patients: As a result of the Cures Act, medical imaging exams and procedure reports are released immediately into your electronic medical record. You may view this report before your referring provider. If you have questions, please contact your health care provider. Indication: total knee replacement Technique: Two views left knee Findings/Impression: Hardware from a left total knee arthroplasty is in satisfactory position. Bone alignment is normal. No sign of acute fracture. Postop changes are within normal limits. Dictated by Philippe Godwin MD @ 03/11/2025 12:30:27 PM (Electronically Signed)
[2025-03-11] MEDS: IBUPROFEN 200 MG TABLET 600 MG PO (11:59)
[2025-03-11] MEDS: LACTATED RINGERS 1000 ML 1,000 ML 200 ML IV (12:30)
== END 2025-03-11 14:08 | disposition home or self-care (01) ==
PROVIDERS: PCP Family Medicine; Visit Provider Orthopaedic Surgery Sports Medicine
PROC: (CPT 27447; principal; 2025-03-11 08:45)
DX: M17.12 Unilateral primary osteoarthritis, left knee (principal); G89.18 Other acute postprocedural pain; M05.9 Rheumatoid arthritis with rheumatoid factor, unspecified; Z79.631 Long term (current) use of antimetabolite agent
CPT/HCPCS: 27447; 01402; 64447; 64454; 73560; 76942; 97110; 97116; 97162; 99100; 99140; A9270; C1776; J0665; J0690; J1100; J2250; J2371; J2405; J2704; J3010; J3490; J7120